=== PATIENT | male | born 1965 | race Caucasian/White ===

== ENCOUNTER 2016-08-05 09:45 | Day surgery (SDC) | payer OTHER ==
[~2016-08-05] VITALS: Ht 188 cm; Wt 127.0 kg
[~2016-08-05 09:45] MED LIST: 0.9% Sodium Chloride 1,000 ML IV SCH; LOSA50TA37 PO; METF-496 PO; OMEP1PAC5 PO; Sodium Chloride LOK Flush 10 mL Syringe IV PRN; fentaNYL-PF 50 mCg/mL 2 mL Inj IVPUSH PRN
[2016-08-05 10:58] VITALS: BP 148/74; PULSE 55; RESP 16; O2SAT 95
--- NOTE | 2016-08-05 11:37 | PCM.ENDEGD ---
EGD Date of Service: Aug 05, 2016 Physician Emanuel Lynch MD Indication for Procedure Dysphagia and reflux Post Procedure Dx & Findings: Esophagitis and gastritis Procedure Esophagogastroduodenoscopy PROCEDURE IN DETAIL: The patient was placed in left lateral decubitus position. Bite block was placed. Scope lubricated, placed in posterior pharynx, passed through the cricopharyngeus and esophagus, slowly advanced the entire length of the gastric pouch, pylorus was identified, scope passed through the pylorus and descending portion of duodenum, withdrawn in the antrum, retroflexed upon itself for view of fundus and cardia. Scope was then withdrawn through the oropharynx. Esophagus was unremarkable until the Z line. Z line was irregular and mild scarring noted. Biopsies are obtained using cold forceps. Stomach showed irritation from fundus body antrum and to some extent pylorus. There were some redness and mild edema. Biopsy obtained in these areas. Retroflexion showed cardia and fundus. Stomach was easily inflatable and deflated when using air. Duodenum showed normal villous structures normal folds. Impression Esophagitis with minimal scarring status post biopsies Gastritis Recommendation Continue Prilosec. Presedation Assessment Risks and Benefits Informed consent was obtained from the patient after all risks and benefits including but not limited to drug reaction, infection, pain, bleeding, perforation, as well as alternatives were discussed. Patient monitoring Continuous pulse oximetry, cardiac monitoring, blood pressure monitoring, IV access, and oxygen at 2L per nasal cannula. Periprocedural Fentanyl: Fentanyl 100mcg Incrementally Midazolam: Midazolam 5mg Incrementally Complications There were no periprocedural complications identified. Post Procedure Plan Post Procedure Recommendations 1. Restrict activities today. 2. Resume normal activities in the morning. 3. Resume medications. 4. GERD behavioral modification: - Avoid fatty, acidic, spicy, large meals - Do not lie down after meals - Do not eat or drink anything for at least 2 1/2 hours before going to bed at night - Discontinue tobacco and alcohol - Decrease or avoid caffeine - Avoid chocolate and mints - Decrease weight - Avoid aspirin and non steroidal anti-inflammatory agents (NSAID) such as Aleve, Advil, Mobic, Naproxen, Ibuprofen, etc 5. Add proton pump inhibitor. Take 30 minutes before 1st meal of the day. 6. Patient informed of normal post procedure side effects as bloating, drowsiness, blood streaking in the stool 7. If gastric biopsy reveal H.pylori, continue with appropriate treatment 8. If small bowel biopsy reveals celiac, continue with appropriate treatment 9. Please don't hesitate to call me with any questions Emanuel Lynch MD Aug 05, 2016 11:37
--- NOTE | 2016-08-05 12:08 | PCM.ENDCOL ---
Colonoscopy Date of Service: Aug 05, 2016 Physician Emanuel Lynch MD Indication for Procedure Screening Post Procedure Dx & Findings: Polyp hemorrhoids Procedure Colonoscopy Prep adequate cecal time 3 minutes withdrawal time 12 minutes PROCEDURE IN DETAIL: After unremarkable rectal examination Olympus video colonoscope was inserted patient's anal canal was advanced to cecum. Landmarks were identified including the ileocecal valve and appendiceal orifice. Scope was withdrawn systematically. The mucosa of the cecum, ascending, transverse, descending, sigmoid, rectal mucosa lined with whitish, pink, smooth, glistening, normal-appearing mucosa, normal fine branching, underlying vascularity, normal haustra. The patient tolerated procedure and was transported to observation area. In the ascending colon, there was a 1 mm polyp which was resected completely using cold forceps. In the ascending colon, there was a 1 mm polyp which was again resected completely using cold forceps. In the transverse colon, there was a 3 mm polyps which was resected completely using cold snare. Also in the transverse colon, there was a 1 mm polyp which was resected completely using cold forceps. In the descending colon, it were 2 polyps 1 mm in size which were resected completely using cold forceps. In the rectosigmoid junction, there were two1 mm polyps which were resected completely using cold forceps. In the rectum, retroflexion was done which showed hemorrhoids and anal canal was inspected carefully on the way out and hemorrhoids noted. Impression Polyps 7 status post complete removal Hemorrhoids Recommendation Repeat colonoscopy 3 years Presedation Assessment Risks and Benefits Informed consent was obtained from the patient after all risks and benefits including but not limited to drug reaction, infection, pain, bleeding, perforation, as well as alternatives were discussed. Patient monitoring Continuous pulse oximetry, cardiac monitoring, blood pressure monitoring, IV access, and oxygen at 2L per nasal cannula. Periprocedural Fentanyl: Fentanyl 50mcg Incrementally Midazolam: Midazolam 1mg Incrementally Complications There were no periprocedural complications identified. Post Procedure Plan Post Procedure Recommendations 1. Restrict activities today. 2. Resume normal activities in the morning. 3. Resume medications. 4. Patient informed of normal post procedure side effects as bloating, drowsiness, blood streaking in the stool. 5. average risk CRCS. If colon polyps come back as: -Hyperplastic- can repeat colonoscopy in 10 years -Tubular adenoma- repeat colonoscopy in 5 years -Tubulovillous/villous adenoma- repeat colonoscopy in 3 years -If any dysplasia- return to clinic as soon as possible 6. Please don't hesitate to call me with any questions. Emanuel Lynch MD Aug 05, 2016 12:08
[2016-08-05 12:09] VITALS: BP 153/83; PULSE 68; RESP 12; O2SAT 94
[2016-08-05 12:19] VITALS: BP 139/83; PULSE 58; RESP 12; O2SAT 95
[2016-08-05 12:29] VITALS: BP 134/81; PULSE 57; RESP 14; O2SAT 95
[2016-08-05 12:39] VITALS: BP 142/76; PULSE 57; RESP 14; O2SAT 95
--- NOTE | 2016-08-06 11:59 | PATH ---
SURGICAL PATHOLOGY Attending Physician:Emanuel Lynch M.D. CASE STATUS: Signed Out PATIENT NAME: KAREEN SCHNEIDER PID: [id number] : 1965 DATE COLLECTED:08/05/2016 20:40 SPECIMEN: 1: Gastric, Biopsy 2: Esophagus, Biopsy 3: Colon, Biopsy 4: Colon, Biopsy 5: Colon, Biopsy 6: Colon, Biopsy CLINICAL HISTORY: 1). GASTRIC BIOPSY 2). DISTAL ESOPHAGUS BIOPSY 3). ASCENDING COLON POLYP 4). TRANSVERSE COLON POLYPS 5). DESCENDING COLON POLYPS 6). RECTO-SIGMOID POLYPS FINAL DIAGNOSIS: 1.GASTRIC BIOPSY: MUCOSAL HYPEREMIA WITHOUT ASSOCIATED SIGNIFICANT INFLAMMATION INVOLVING FUNDIC MUCOSA. Negative for evidence of Helicobacter. Negative for intestinal metaplasia. Negative for dysplasia and malignancy. 2.DISTAL ESOPHAGUS BIOPSY: FRAGMENTS OF SQUAMOUS MUCOSA AND GASTRIC CARDIA-TYPE MUCOSA NEGATIVE FOR SPECIALIZED METAPLASIA OF [place]' S-TYPE ESOPHAGUS. Negative for dysplasia and malignancy. Eosinophils are not increased. Small focus of pancreatic acinar metaplasia. 3.ASCENDING COLON POLYP: TUBULAR ADENOMA. 4.TRANSVERSE COLON POLYPS: TUBULAR ADENOMA INVOLVING MULTIPLE BIOPSY FRAGMENTS. 5.DESCENDING COLON POLYPS: TUBULAR ADENOMA INVOLVING BOTH BIOPSY FRAGMENTS. 6.RECTOSIGMOID POLYPS: TUBULAR ADENOMA. HYPERPLASTIC POLYP. ICD10 CODE D12.2 GROSS DESCRIPTION: The specimen is received in six formalin filled containers labeled with the patient's name. 1). The specimen is sublabeled "gastric" and consists of 2 portions of tissue which aggregate to 0.3 x 0.3 x 0.2 CM. The specimen is entirely submitted in cassette 1A. 2). The specimen is sublabeled "distal esophagus" and consists of a 0.3 x 0.2 x 0.2 CM portion of tissue which is entirely submitted in cassette 2A. 3). The specimen is sublabeled "ascending colon polyp" and consists of a 0.2 x 0.2 x 0.2 CM portion of tissue which is entirely submitted in cassette 3A. 4). The specimen is sublabeled "transverse colon polyps" and consists of multiple portions of tissue which aggregate to 0.5 x 0.5 x 0.2 CM. The specimen is entirely submitted in cassette 4A. 5). The specimen is sublabeled "descending colon polyp" and consists of 2 portions of tissue which aggregate to 0.4 x 0.4 x 0.3 CM. The specimen is entirely submitted in cassette 5A. 6). The specimen is sublabeled "recto sigmoid polyps" and consists of 2 portions of tissue which aggregate to 0.4 x 0.4 x 0.3 CM. The specimen is entirely submitted in cassette 6A. 08/05/2016 DAC MICRO DESCRIPTION: See diagnosis. ICD-9 CODES: CPT CODES: 1: 81560 2: 36367 3: 82150 4: 62707 5: 92104 6: 48457 Electronically Signed Out Richard Estrella MD [facility] [address], [place] [address] Technical component performed at [facility], [address], [place], [address]
== END 2016-08-05 23:59 | disposition home or self-care (01) ==
LOC: END 09:45
PROVIDERS: ATTEND Internal Medicine
DX: Z12.11 Encounter for screening for malignant neoplasm of colon (principal); D12.2 Benign neoplasm of ascending colon; D12.4 Benign neoplasm of descending colon; D12.3 Benign neoplasm of transverse colon; D12.7 Benign neoplasm of rectosigmoid junction; K62.1 Rectal polyp; K64.9 Unspecified hemorrhoids; K20.9 Esophagitis, unspecified; K29.70 Gastritis, unspecified, without bleeding; E11.42 Type 2 diabetes mellitus with diabetic polyneuropathy; Z79.84 Long term (current) use of oral hypoglycemic drugs; E66.9 Obesity, unspecified; Z68.30 Body mass index [BMI] 30.0-30.9, adult
CPT/HCPCS: 43239; 45380; 99153; G0500; J2250; J7030

== ENCOUNTER 2016-09-18 15:58 | Emergency (ER) | payer OTHER ==
[~2016-09-18] VITALS: Ht 188 cm; Wt 136.4 kg
[~2016-09-18 15:58] MED LIST changes: -0.9% Sodium Chloride 1,000 ML IV SCH; -Sodium Chloride LOK Flush 10 mL Syringe IV PRN; -fentaNYL-PF 50 mCg/mL 2 mL Inj IVPUSH PRN
[2016-09-18 16:02] VITALS: BP 194/111; PULSE 61; RESP 24; O2SAT 99
[2016-09-18] MEDS ORDERED: Nitroglycerin 2% 1 Gm Ointment TOPICAL ONE (16:20)
[2016-09-18] MEDS ORDERED: Heparin 5,000 Unit/mL Inj IVPUSH ONE (16:20)
[2016-09-18] MEDS ORDERED: Heparin 25K Unit/500mL 0.45 NS 25,000 UNIT in IV Premix 1 EACH IV ONE (16:20)
[2016-09-18] MEDS ORDERED: Ondansetron 2 mg/mL 2 mL Inj IVPUSH ONE (16:20)
--- NOTE | 2016-09-18 16:22 | ED.REPORT ---
HPI-Chest Pain 40 and Over Date of Service Sep 18, 2016 ED Provider: Tarun Prakash DO Pt is a 50 y/o male w/ a hx of HTN, NIDDM, presenting to the ED c/o severe substernal CP with radiation to the posterior right arm onset 2 hours ago. Pt c/ o associated SOB, profuse diaphoresis. Pt denies any history of previous CT. His diabetes is not well controlled. Pt denies smoking. He has a family history of CAD in his mother. Nursing Notes Stated Complaint: CHEST PAIN, PROBLEMS BREATHING Chief Complaint: Chest Pain Nursing Notes Reviewed: Yes Allergies: Coded Allergies: codeine (Verified Allergy, Intermediate, HALLUCINATION, BEHAVIOR CHANGES, 08/05/16) Scheduled Losartan Potassium (Losartan Potassium) 50 Mg Tablet 50 MG PO DAILY Metformin ER (Metformin ER) 1,000 Mg Tablet 1,000 MG PO DAILY Omeprazole/Sodium Bicarbonate (Omeprazole-Bicarb 20-1,680 Pkt) 20 Mg-1,680 Mg Packet 1 EACH PO BID General Time Seen by MD: 16:09 Chief Complaint Chest pain Hx Obtained From: Patient Arrived By: Walk-in Sudden in Onset?: Yes Onset Occurred: 1 - 4 hours ago Symptom Duration: Since onset Location: : Substernal Quality: Painful Radiation: : Arm right Migration/Movement: Reports: None Severity: Current: Moderate Severity: Maximum: Severe Similar Sx Previous: No Past Medical History Past Medical History Hypertension DM Hx pneumonia GERD Arthritis Past Surgical History Appendectomy R ankle Family History CAD in mother Smoking History Former Smoker Social History Alcohol Use: "Social" Drug Use: Denies drug use Ambulatory Status Independent Review of Systems Constitutional: Denies: Chills, Fever Respiratory: Reports: Shortness of breath, Denies: Non-productive cough Cardiovascular: Reports: Chest pain, Denies: Edema, Palpitations, Syncope GI: Denies: Abdominal pain, Diarrhea, Vomiting Skin: Reports Diaphoresis, Denies Rash Neurologic: Denies: Focal weakness, Numbness Complete sys rev & neg: except as marked. Physical Exam Initial Vital Signs Vital Signs (First) Date Time Temp Pulse Resp B/P Pulse Ox O2 Delivery O2 Flow Rate FiO2 09/18/16 16:02 36.7 61 24 194/111 99 Room Air Initial VS: Reviewed, Vital signs abnormal (severe hypertension) Head / Eyes: Atraumatic, Normocephalic, PERRL ENT: Mucous membranes moist, Conjunctiva normal, No scleral icterus Neck: Supple, Full range of motion Extremities: Vascular intact, Neuro intact, No swelling, No tenderness Neurologic: Alert, Oriented, Nonfocal Psychiatric: Mood/affect normal, Behavior normal, Normal thought content General/Constitutional: Awake, Alert, Cooperative Distress / Hydration: Positive: Distress moderate Respiratory / Chest: Atraumatic, Breath sounds NL, Breath sounds = bilat, No respiratory distress, No rales, No rhonchi, No wheezing, No retractions, No stridor, No chest tenderness, No chest wall deformity, No crepitus Cardiovascular: Heart rate NL, Regular rhythm, Heart sounds NL, No gallop, No murmurs, No rubs, Cap refill not delayed, Peripheral circulation NL Abdomen: Atraumatic, Soft, Non-tender Skin: Atraumatic, No rash, Warm Color / Condition: Positive: Diaphoresis present Interpretation & Diagnostics Lab Results Interpretation Test 09/18/16 16:28 ECG Interpretation ECG Interpretation: SInus rhythm rate 65 Acute inferior infarct and anteroseptal infarct ST elevation in inferior leads ST depression in anterior leads V2-V6, AvL, and I No prior available for comparison Time: 16:22 Interpreted by: ED physician X-Ray Chest Interpretation Chest Xray Interpretation: IMPRESSION: No acute process. Dictated by: Ricco Macias M.D. on 09/18/2016 at 16:25 Approved by: Ricco Macias M.D. on 09/18/2016 at 16:26 View: Portable, 1 view Interpretation / Wet Read by: Interpret - Radiologist Re-Eval/Medical Decision Med Decision/Clinical Course 50-year-old male with a history of uncontrolled diabetes and hypertension presents with substernal chest pain that started at rest 2 hours prior to arrival. The pain radiates to his right posterior arm. EKG shows acute inferior ST elevation CT. I spoke with our locomotive engineer , who at this time notes there is a patient on the Surgical Instrument Repair Specialist table and we are unable to emergently/urgently take him for angioplasty. at [facility] was contacted and has accepted the patient. He will be transferred emergently for treatment. Here patient was given morphine, oxygen, 1 inch of Nitropaste, a full aspirin, and heparin bolus followed by drip. Pain decreased after morphine but has not completely abated. He will be given more in the ambulance. Patient left our ER at 1650. His total time since I saw him in the ER when notified by check of abnormal EKG was 30 minutes. Patient required my full and undivided attention for the entire ER stay. Time of Eval: 16:32 Re-Evaluation/Progress Note: Pt rechecked. Informed pt of need for transfer due to not available geophysical laboratory supervisor bed. He agrees with plan for transfer. Consultation : Referral / Consult Name: Darryn Rendon MD Consulted With: Cardiology Call Returned at: 16:25 Machine Tool Operator: Agrees with eval, Agrees with plan Note: Consulted with STEMI doc. There is a patient on the geophysical laboratory supervisor table at the moment. 16:28 - Dr. Finley called back and requested STAT transfer to another hospital because the cath table is busy. Recommends 600 mg Plavix orally. Counseled Regarding: Diagnosis, Lab results, Need for transfer Discharge & Departure Primary Impression: ST elevation myocardial infarction (STEMI) of inferior wall Disposition: Transfer, Acute Care Facility Transfer Requested at: 16:29 Call returned time (1638) Receiving Hospital: [facility] - Claims Technician Dr. Lackey ED doc: Dr. Dent Transfer Accepted: Yes Transfer Accepted at: 16:29 Transfer Reason: Higher level of care Spoke with: Specialty physician (Claims Technician) Patient Status: Stable Patient Informed: Yes Discharge Condition All VS Reviewed: Yes Condition: Stable Referrals: Omero Davis MD (PCP) Crit Care Except Billable Proc Time Spent: 30-74 minutes Services Performed: Patient management by me, Time spent at bedside, Reviewing test results, Reviewing imaging, Discussing patient care, Documentation in record Scribe Attestation Portions of this note were transcribed by Tanner Lowe. I, Dr. Prakash, personally performed the history, physical exam and medical decision-making; I reviewed and confirmed the accuracy of the information in the transcribed note. Signed by Viviana Humphrey, 09/18/16 - 1630 copies to: Omero Davis MD, Gary R DO Sep 18, 2016 16:22 TANNER LOWE Sep 18, 2016 16:23
--- NOTE | 2016-09-18 16:31 | DRSVH ---
PROCEDURE: X-RAY CHEST ONE VIEW, PORTABLE ([id number]) INDICATIONS: cp TECHNIQUE: One view of the chest was acquired. COMPARISON: None. FINDINGS: Surgical changes and devices: None. Lungs and pleura: No pleural effusions or pneumothorax. Lungs are clear. Mediastinum: Mediastinal contours appear normal. Heart size is normal. Bones and chest wall: No suspicious bony lesions. Overlying soft tissues appear unremarkable. IMPRESSION: No acute process. Dictated by: Ricco Macias M.D. on 09/18/2016 at 16:25 Approved by: Ricco Macias M.D. on 09/18/2016 at 16:26
[2016-09-18 16:44] LABS: BASOPHILS % (AUTO) 0.3 % (0-3); EOSINOPHILS % (AUTO) 0.8 % (0-5); MONOCYTES % (AUTO) 5.5 % (4-12); Mean Corpuscular Hemoglobin 28.4 pg (27.0-35.0); NEUTROPHILS % (AUTO) 59.5 % (40-74); Platelet Count 222 bil/L (150-400)
[2016-09-18 16:45] VITALS: BP 172/88; PULSE 71; RESP 16; O2SAT 99
[2016-09-18 17:26] LABS: TROPONIN T < 0.010 ug/L (0.0-0.011)
== END 2016-09-18 16:50 | disposition short-term general hospital (02) ==
LOC: SED 15:58
DX: I21.19 ST elevation (STEMI) myocardial infarction involving other coronary artery of inferior wall (principal); R61 Generalized hyperhidrosis; I10 Essential (primary) hypertension; E11.9 Type 2 diabetes mellitus without complications; K21.9 Gastro-esophageal reflux disease without esophagitis; Z88.5 Allergy status to narcotic agent; Z87.01 Personal history of pneumonia (recurrent); Z87.891 Personal history of nicotine dependence; Z79.84 Long term (current) use of oral hypoglycemic drugs
CPT/HCPCS: 36415; 71010; 80053; 83735; 84484; 85025; 93005; 96374; 96375; 99291; J1644; J2270; J2405

== ENCOUNTER 2016-10-14 19:26 | Observation (INO) | payer OTHER ==
[~2016-10-14] VITALS: Ht 188 cm; Wt 129.4 kg
[2016-10-14 19:33] VITALS: BP 158/76; PULSE 57; RESP 24; O2SAT 98
[2016-10-14 20:08] LABS: BASOPHILS % (AUTO) 0.4 % (0-3); EOSINOPHILS % (AUTO) 1.1 % (0-5); MONOCYTES % (AUTO) 9.6 % (4-12); Mean Corpuscular Hemoglobin 28.1 pg (27.0-35.0); Mean Corpuscular Volume 82.1 fL (81-100); NEUTROPHILS % (AUTO) 45.9 % (40-74); Platelet Count 191 bil/L (150-400)
--- NOTE | 2016-10-14 20:16 | DRSVH ---
PROCEDURE: X-RAY CHEST ONE VIEW, PORTABLE ([id number]) INDICATIONS: CHEST PAIN TECHNIQUE: One view of the chest was acquired. COMPARISON: [facility], CR, XR CHEST 1VW (PORTABLE), 09/18/2016, 16:05. FINDINGS: Surgical changes and devices: None. Lungs and pleura: No pleural effusions or pneumothorax. Lungs are clear. Mediastinum: Mediastinal contours appear normal. Heart size is normal. Bones and chest wall: No suspicious bony lesions. Overlying soft tissues appear unremarkable. IMPRESSION: No acute process. Dictated by: Ricco Macias M.D. on 10/14/2016 at 20:14 Approved by: Ricco Macias M.D. on 10/14/2016 at 20:14
--- NOTE | 2016-10-14 20:16 | ED.REPORT ---
HPI-Chest Pain 40 and Over Date of Service Oct 14, 2016 ED Provider: Richard Marrero MD A 50 year old male with a history of hypertension, poorly controlled type II diabetes, and STEMI s/p cardiac angiogram presents to the ED complaining of intermittent chest pain that began 0900 this morning. Patient was recently seen in the ED on 09/18 for substernal chest pain and was transferred to [facility] for an angioplasty after EKG showed acute inferior STEMI. Records from [facility] are reviewed. On 09/18 patient had emergent angiogram total occlusion of RCA and a 3mm x 28 mm stent was placed. Evidence of residual stenosis was found. Patient will be reevaluated for a PCI in the next 4-6 weeks after evidence of OM1 lesion was found. Echocardiogram revealed EF 50% with inferior hypokinesis. Today, the patient presents with stuttering chest pain that he rates as a 6/10. The intermittent episodes of pain last approx. 10 minutes and is exacerbated by movement. The pain is not relieved by anything. His pain radiates to his left arm and has become increasingly worse since onset. Associated symptoms include lightheadedness, one episode of diaphoresis and bilateral arm discomfort. Patient has an appointment scheduled to for further intervention on 11/03. He took aspirin this morning with little relief. His current medication list includes metoprolol, lisinopril, metformin, Plavix and carvedilol. He denies any current SOB or bloody stool. He denies taking Nitroglycerin or history of hyperlipidemia. Patient recently quit smoking after his OK. Nursing Notes Stated Complaint: CHEST PAIN Chief Complaint: Chest Pain Nursing Notes Reviewed: Yes Allergies: Coded Allergies: codeine (Verified Adverse Reaction, Intermediate, HALLUCINATION, BEHAVIOR CHANGES, 10/14/16) Scheduled Aspirin (Aspirin) 81 Mg Tablet 81 MG PO QAM Atorvastatin (Lipitor) 80 Mg Tablet 80 MG PO HS Carvedilol (Carvedilol) 6.25 Mg Tablet 6.25 MG PO BID Clopidogrel (Clopidogrel) 75 Mg Tablet 75 MG PO HS Glimepiride (Glimepiride) 2 Mg Tablet 2 MG PO DAILYWM Losartan Potassium (Losartan Potassium) 50 Mg Tablet 100 MG PO HS Metformin ER (Metformin ER) 1,000 Mg Tablet 1,000 MG PO HS Omeprazole (Omeprazole) 20 Mg Tablet.dr 20 MG PO HS Scheduled PRN Acetaminophen (Acetaminophen) 325 Mg Tablet 650 MG PO Q4H PRN PRN For Pain Hydrocodone-Acetaminophen 5-325 mg (Hydrocodone-Acetaminophen 5-325 mg) 1 Each Tablet 1 TABLET PO Q6H PRN PRN For Pain Nitroglycerin SL (Nitroglycerin SL) 0.4 Mg Tab.subl 0.4 MG SL Q5MIN PRN PRN For Chest Pain General Time Seen by MD: 19:58 Chief Complaint Chest pain Hx Obtained From: Patient Arrived By: Walk-in Sudden in Onset?: Yes Onset Occurred: 9 - 12 hours ago Symptom Duration: Intermittent (10 min episodes) Location: : Chest left: Chest right Quality: Painful Radiation: : Arm left Migration/Movement: Reports: None Severity: Current: Pain level 6 out of 10 Severity: Maximum: Pain level 6 out of 10 Associated with: Reports: Diaphoresis, Lightheaded, Denies: Shortness of Breath Pertinent Negative: Pt denies other symptoms Exacerbated by: Movement Pertinent Negative: Relieved by nothing Recent Healthcare: Recent doctor visit, Recent hospitalization Risk Factors )( CAD Risk Stratification Diabetes mellitus Hypertension Risk factors reviewed )( TAD Risk Stratification Hypertension Risk factors reviewed )( PE Risk Stratification Risk factors reviewed Past Medical History Past Medical History Notes: PCP: Dr. Omero Davis Cardiology: Dr. Efren [facility] Past Medical History Hypertension DM Hx pneumonia GERD Arthritis Denies: Hyperlipidemia Past Surgical History Appendectomy R ankle Stent Family History CAD in mother s/p stent (50+) Smoking History Former Smoker Social History Alcohol Use: "Social" Drug Use: Denies drug use Other Social History: Good social support, Local resident Ambulatory Status Independent Review of Systems Constitutional: Denies: Chills, Fever Respiratory: Denies: Shortness of breath Cardiovascular: Reports: Chest pain GI: Denies: Bloody/tarry stool, Melena Musculoskeletal: Reports: Extremity pain (Bilateral arm discomfort) Skin: Reports Diaphoresis Neurologic: Reports: Lightheaded, Denies: Change LOC Complete sys rev & neg: except as marked. Physical Exam Initial Vital Signs Vital Signs (First) Date Time Temp Pulse Resp B/P Pulse Ox O2 Delivery O2 Flow Rate FiO2 10/14/16 19:33 36.4 57 24 158/76 98 Room Air Initial VS: Reviewed Head / Eyes: Atraumatic, Normocephalic, PERRL Extremities: Vascular intact, Neuro intact, No swelling, No tenderness Skin: Warm, Dry, No cyanosis Neurologic: Alert, Oriented, Nonfocal Psychiatric: Mood/affect normal, Behavior normal, Normal thought content General/Constitutional: Awake, Alert, No acute distress Respiratory / Chest: Atraumatic, Breath sounds NL, Breath sounds = bilat, No respiratory distress Cardiovascular: Heart rate NL, Regular rhythm, Heart sounds NL, No gallop, No murmurs, No rubs Abdomen: Atraumatic, Soft, BS normoactive Skin: Atraumatic, Color NL, Warm Color / Condition: Positive: Diaphoresis present Interpretation & Diagnostics Lab Results Interpretation Result Diagram: 10/14/16200410/14/162004 Test 10/14/16 20:05 10/14/16 20:06 White Blood Count 8.1th/mm3 (3.8-10.1) Red Blood Count 4.63mil/mm3 (4.40-5.80) Hemoglobin 13.0g/dL (13.8-17.2) Hematocrit 38.0% (41.0-50.0) Mean Corpuscular Volume 82.1fL (81-100) Mean Corpuscular Hemoglobin 28.1pg (27.0-35.0) Mean Corpuscular Hemoglobin Concent 34.2% (32.0-37.0) Red Cell Distribution Width 13.2% (12.3-15.4) Platelet Count 191bil/L (150-400) Neutrophils (%) (Auto) 45.9% (40-74) Lymphocytes (%) (Auto) 42.9% (14-46) Monocytes (%) (Auto) 9.6% (4-12) Eosinophils (%) (Auto) 1.1% (0-5) Basophils (%) (Auto) 0.4% (0-3) Activated Partial Thromboplast Time 27.7sec (22.8-33.0) Sodium Level 140mEq/L (134-144) Potassium Level 4.1mEq/L (3.5-5.2) Chloride Level 103mEq/L (97-108) Carbon Dioxide Level 25mmol/L (18-29) Blood Urea Nitrogen 11mg/dL (6-24) Creatinine 1.07mg/dL (0.76-1.27) Estimat Glomerular Filtration Rate 78mL/min (>59) Glucose Level 88mg/dL (60-99) Calcium Level 9.3mg/dL (8.5-10.1) Magnesium Level 2.0mg/dL (1.6-2.6) Total Bilirubin 0.6mg/dL (0.0-1.2) Aspartate Amino Transf (AST/SGOT) 23U/L (0-50) Alanine Aminotransferase (ALT/SGPT) 40U/L (0-44) Alkaline Phosphatase 76U/L (25-150) Troponin T < 0.010ug/L (0.0-0.011) Total Protein 7.1g/dL (6.4-8.4) Albumin 4.0g/dL (3.4-5.0) Hold Plaza Top Tube Received (Received) Prothrombin Time 10.3sec (8.1-12.5) Prothromb Time International Ratio 0.96ratio ECG Interpretation ECG Interpretation: Sinus rhythm Rate 54 Inferior and anterior infarct No acute ST segment changes Improved (3/7 STEMI) Time: 20:31 Interpreted by: ED physician ECG Interpretation: Sinus rhythm Rate 62 Time: 20:35 Interpreted by: ED physician Normal ECG Interpretation: No change from prior ECGs Repeat ECG: Repeat ECG unchanged X-Ray Chest Interpretation Chest Xray Interpretation: IMPRESSION: No acute process. Dictated by: Ricco Macias M.D. on 10/14/2016 at 20:14 Interpretation / Wet Read by: Interpret - Radiologist Re-Eval/Medical Decision Med Decision/Clinical Course 50-year-old male with known coronary disease presenting with chest pain however no EKG changes and no elevation of troponin in spite of many hours of stuttering pain. No significant response to oral nitrates, topical nitrates applied and given morphine. He is notably bradycardic however he is on a beta erma. The patient is started on heparin given full dose aspirin and admitted to the hospitalist service. Cardiology will consult in the morning. Consultation #1: Referral / Consult Name: Syd Serrano MD Consulted With: Cardiology Call Returned at: 20:51 Field Recorder: Will see patient, Agrees with eval, Agrees with plan Note: Recommends heparin and NPO Consultation #2: Referral / Consult Name: Wanda Palacio DO Consulted With: Hospitalist Call Returned at: 20:57 Field Recorder: Will see patient, Agrees with eval, Agrees with plan, Accepts admit Counseled Regarding: Diagnosis, Lab results, Need for admission Discharge & Departure Primary Impression: Acute coronary syndrome Disposition: ADMITTED TO HOSPITAL Discharge Condition All VS Reviewed: Yes Condition: Stable Referrals: Omero Davis MD (PCP) Scribe Attestation Portions of this note were transcribed by Katarina Chris. I, Dr. Marrero personally performed the history, physical exam and medical decision-making; I reviewed and confirmed the accuracy of the information in the transcribed note. Signed by: Viviana Laureano, 10/14/16 2200. copies to: Omero Davis MD, Donald L MD Oct 14, 2016 20:16 KATARINA CHRIS Oct 14, 2016 20:24
[2016-10-14 20:34] LABS: TROPONIN T < 0.010 ug/L (0.0-0.011)
[2016-10-14] MEDS ORDERED: Heparin 5,000 Unit/mL Inj IVPUSH ONE (20:35)
[2016-10-14] MEDS ORDERED: Heparin 25K Unit/500mL 0.45 NS 25,000 UNIT in IV Premix 1 EACH IV SCH (20:35)
[2016-10-14] MEDS ORDERED: Nitroglycerin 2% 1 Gm Ointment TOPICAL SCH (21:15)
[2016-10-14] MEDS ORDERED: GLIM2TAB2 PO (21:44)
[2016-10-14] MEDS ORDERED: CARV6.252 PO (21:44)
[2016-10-14] MEDS ORDERED: ACET325T51 PO (21:44)
[2016-10-14] MEDS ORDERED: NITR0.4T6 SL (21:44)
[2016-10-14] MEDS ORDERED: HYDR-4003 PO (21:44)
[2016-10-14] MEDS ORDERED: ASPI-973 PO (21:44)
[2016-10-14] MEDS ORDERED: CLOP75TA28 PO (21:44)
[2016-10-14] MEDS ORDERED: OMEP20TA86 PO (21:44)
[2016-10-14] MEDS ORDERED: ATOR80TA PO (21:44)
[2016-10-14 22:21] VITALS: BP 142/87; PULSE 51; RESP 16; O2SAT 97
[2016-10-14] MEDS ORDERED: 0.9% Sodium Chloride 1,000 ML IV SCH (22:46)
[2016-10-14] MEDS ORDERED: Atropine 1 mg/10 mL (Code) Syringe IVPUSH PRN (22:50)
[2016-10-14] MEDS ORDERED: Ondansetron 2 mg/mL 2 mL Inj IVPUSH PRN (22:50)
[2016-10-14] MEDS ORDERED: Alum-Mag Hydrox-Simeth 30 mL Suspension PO PRN (22:50)
[2016-10-14] MEDS ORDERED: Polyethylene Glycol (PEG) 17 Gm Powder PO PRN (22:50)
[2016-10-14] MEDS ORDERED: Senna-Docusate 8.6-50 mg Tablet PO PRN (22:50)
[2016-10-14 22:51] VITALS: BP 136/74; PULSE 50; RESP 14; O2SAT 97
[2016-10-14] MEDS ORDERED: Glucose 40% Oral Gel 15 Gm Tube PO PRN (22:55)
--- NOTE | 2016-10-14 23:13 | PCM.HPMED ---
Subjective Date of Service Oct 14, 2016 Primary Provider: Admitting Physician: Wanda Palacio DO Primary Care Physician: Omero Davis MD Attending Physician: Wanda Palacio DO Chief Complaint: Chest pain History of Present Illness: Patient is a 50 y.o. M with a history of hypertension, poorly controlled type II diabetes, recently seen in the ED on 09/18 for substernal chest pain and was transferred to [facility] for an angioplasty after EKG showed acute inferior STEMI, s/p cardiac angiogram two vessel disease marginal vessel and RCA ( one stent to RCA patient scheduled November 03 to have marginal vessel stented in [facility]). Records from [facility] on 09/18 patient show that patient had "emergent angiogram total occlusion of RCA and a 3mm x 28 mm stent was placed. Evidence of residual stenosis was found. Patient will be reevaluated for a PCI in the next 4-6 weeks after evidence of OM1 lesion was found. Echocardiogram revealed EF 50% with inferior hypokinesis." He presented to the ED complaining of intermittent chest pain that began 0900 this morning rated as a 6/10, described as constant lasting for about 10 minutes, made worse with movement and deep breaths, sharp, located to left chest at ribs 6 and 7, radiating to left axilla, associated with worsening shortness of breath, one episode of diaphoresis, fatigue, dizziness with standing. Patient noted that he has been taking double the dosage of Cardizem total 25 mg daily rather than 12.5 due to miscommunication of dosage. Patient noted that symptoms peak in the afternoon and he sough emergency care.Patient stated that chest pain on his left side has been present since his last catheterization but that it was at its worst today. Pain was similar to his last SC, however, arm pain was located on his right arm instead of left. Patient denies fever, chills, nausea, vomiting , abdominal pain, diarrhea, constipation, dysuria, swelling of hands and feet, syncope, change in vision, numbness or tingling. In the ED patient noted to be bradycardic, initial troponin was negative, diaphoretic, EKGs showed no signs of acute ST elevations, shortness of breath resolved on its own prior to ED visit, Chest pain improved minimally with nitroglycerin and relieved completely with morphine. Patient given aspirin, nitroglycerin, morphine, with improvement in chest pain, and started on heparin drip. Cardiology consulted from ED. Review of Systems: A comprehensive review of systems was conducted with the patient and found to be negative except as above in the History of Present Illness. Allergies Coded Allergies: codeine (Verified Adverse Reaction, Intermediate, HALLUCINATION, BEHAVIOR CHANGES, 10/14/16) Home Medications Aspirin (Aspirin) 81 Mg Tablet 81 MG PO QAM Atorvastatin (Lipitor) 80 Mg Tablet 80 MG PO HS Carvedilol (Carvedilol) 6.25 Mg Tablet 6.25 MG PO BID Clopidogrel (Clopidogrel) 75 Mg Tablet 75 MG PO HS Glimepiride (Glimepiride) 2 Mg Tablet 2 MG PO DAILYWM Losartan Potassium (Losartan Potassium) 50 Mg Tablet 100 MG PO HS Metformin ER (Metformin ER) 1,000 Mg Tablet 1,000 MG PO HS Omeprazole (Omeprazole) 20 Mg Tablet.dr 20 MG PO HS Acetaminophen (Acetaminophen) 325 Mg Tablet 650 MG PO Q4H PRN PRN For Pain Hydrocodone-Acetaminophen 5-325 mg (Hydrocodone-Acetaminophen 5-325 mg) 1 Each Tablet 1 TABLET PO Q6H PRN PRN For Pain Nitroglycerin SL (Nitroglycerin SL) 0.4 Mg Tab.subl 0.4 MG SL Q5MIN PRN PRN For Chest Pain PMH hypertension poorly controlled type II diabetes recently seen in the ED on 09/18 for substernal chest pain and was transferred to [facility] for an angioplasty after EKG showed acute inferior STEMI, s/p cardiac angiogram two vessel disease marginal vessel and RCA s/p Stent x 1 to RCA Hx pneumonia GERD Arthritis Surgical History s/p Stent x 1 to RCA Appendectomy R ankle surgery Family History Mother SC, DM No family history of cancer Social History Hx Alcohol Use: Yes (moderately ) Hx Substance Use: No Smoking Status: Former Smoker Exam Vital Signs Vital Sign - Last Date Time Temp Pulse Resp B/P Pulse Ox O2 Delivery O2 Flow Rate FiO2 10/14/16 22:51 36.9 50 14 136/74 97 Room Air Exam General: No acute distress, well-developed, well-nourished, appropriately interactive HEENT: Normocephalic, atraumatic. External ears without defect. Pupils equal, round, and reactive to light and accommodation. Anicteric sclerae, moist conjunctivae, and no lid lag. oral mucosa pink/moist mucosa. Neck: Supple with full range of motion. No jugular venous distension. No bruits. No lymphadenopathy or thyromegaly. Cardiovascular: Regular rate and rhythm with no murmurs, rubs, or gallops appreciated. Pulmonary: Clear to auscultation bilaterally with no crackles, wheezes, or rhonchi. Normal respiratory effort with no use of accessory muscles. Abdomen: Bowel tones present. Soft, nontender, nondistended. No hepatosplenomegaly or masses appreciated. Extremities: No clubbing, cyanosis, edema, or lymphadenopathy appreciated. Skin: Normal temperature, turgor, and texture; no rash, ulcers, or subcutaneous nodules appreciated. Neurological: Cranial nerves grossly intact. Normal muscle strength, tone, and bulk. Reflexes, coordination, and sensory function within normal limits. No known gait impairment. Psychiatric: Normal mood and affect. Alert and oriented to person, place, and time. Lymphatic: No lymphadenopathy noted on exam Lab and Diagnostics Result Diagram: 10/14/16200410/14/162004 X-Rays, CTs and MRIs Chest Xray IMPRESSION: No acute process. Dictated by: Ricco Macias M.D. on 10/14/2016 at 20:14 Interpretation / Wet Read by: Interpret - Radiologist 12-lead ECG ECG Interpretation: Sinus rhythm Rate 54 Inferior and anterior infarct No acute ST segment changes Improved (09/21 STEMI) Time: 20:31 Interpreted by: ED physician ECG Interpretation: Sinus rhythm Rate 62 Time: 20:35 Interpreted by: ED physician Normal ECG Interpretation: No change from prior ECGs Repeat ECG: Repeat ECG unchanged Reviewed, Agree with interpretation Assessment & Plan Patient is a 50 y.o. M with a history of hypertension, poorly controlled type II diabetes, recently seen in the ED on 09/18 for substernal chest pain and was transferred to [facility] for an angioplasty after EKG showed acute inferior STEMI, s/p cardiac angiogram two vessel disease marginal vessel and RCA ( one stent to RCA patient scheduled November 03 to have marginal vessel stented in [facility]). Patient admitted for treatment of unstable angina. 1. Unstable Angina, acute - In ED patient noted to be bradycardic, hypertensive, symptoms of chest pain with left arm radiation, diaphoresis, improvement with nitroglycerin and morphine - Initial troponin negative - RAMÍREZ score 4 - Continue heparin drip per protocol - Continue ASA 81 mg QD - Continue Atorvastatin 80 mg QD - Continue Clopidogrel 75 mg QD - beta erma held d/t bradycardia - recent increase in dose, as per patient and medication was inadvertently increased by RN above requested dose - PRN nitroglycerin for CP - PRN morphine for CP - PRN EKG for chest pain - Trend Troponin Q6 - Repeat CBC and BMP in AM, request records lipid panel and hgba1c - Cardiology consulted from ED, will see patient in AM - per patient request - am team to coordinate care [facility] - Per patient's wishes if he is stable enough to keep his planned cath at [facility] on November 03 he would prefer to have the procedure done there for continuity of care, if he needs to have the procedure sooner and is stable for transport he would prefer to be transferred, patient is aware and understands that if he is not stable for transport he will need to have the catheterization done at [facility]. Chronic conditions hypertension - Continue home medications, Cardizem continue at dose 12.5, discussed adverse effects of taking higher doses of CCBs - Monitor for hypotension poorly controlled type II diabetes - BG normal on admit - Low correctional scale ordered - Hold home medications GERD - Protonix Arthritis - Pain control hydrocodone 5-325 mg Q6 PRN CODE STATUS FULL CODE DVT: Clopidogrel, SCDs GI: protonix Patient is admitted under observation status with expected length of stay less than 2 midnights due to severity of presenting symptoms, risk of adverse event, Pain Evaluation: Adequate Pain Control VTE Prophylaxis: SCDs Resuscitation Status: CPR: Attempt Resuscitation Attending Statement The patient was seen and examined together with house staff on 10/14/2016 and I agree with the history, exam and plan as outlined in the note above. FANNIE LONG DO Oct 14, 2016 23:13 Wanda Palacio DO Oct 15, 2016 02:20
--- NOTE | 2016-10-14 23:23 | NUR ---
Admit Pt alert and oriented x3. Able to provide h&p. No c/o pain or discomfort. Arrived on the floor around 2200 with Heparin gtt Cardiac protocol infusing. Pt oriented to use of call light and room with understanding noted.
[2016-10-14] MEDS: Sodium Chloride LOK Flush 10 mL Syringe IVFLUSH SCH (23:36)
[2016-10-14 23:37] LABS: INR 0.96 ratio
[2016-10-15 00:29] VITALS: PULSE 48
[2016-10-15 02:44] VITALS: BP 121/66; PULSE 50; RESP 16; O2SAT 97
[2016-10-15 03:38] LABS: BASOPHILS % (AUTO) 0.4 % (0-3); MONOCYTES % (AUTO) 7.2 % (4-12); Mean Corpuscular Hemoglobin 28.2 pg (27.0-35.0); Mean Corpuscular Volume 82.3 fL (81-100); NEUTROPHILS % (AUTO) 41.1 % (40-74); Platelet Count 182 bil/L (150-400)
--- NOTE | 2016-10-15 03:46 | NUR ---
Telemetry Pt denies any chest pain/discomfort. Telemetry SB in 40s-50s. Heart rate dipped to 39 while asleep. Pt asymptomatic. No c/o dizziness when up and ambulating. Pt aware of NPO after midnight. Addendum: 10/15/16 at 0518 by GLENNA HAN RN Left Arm Pain Pt c/o left arm pain after getting up to void this am. He noticed that pain coming back on his left arm. He rates his pain 2/10. Morphine given with report of effectiveness. He denies any dizziness/sob during the episode. aware and assessed pt.
[2016-10-15 03:50] LABS: APPEARANCE,URINE CLEAR (CLEAR,HAZY); COLOR,URINE STRAW (YELLOW); OCCULT BLOOD,URINE NEGATIVE (NEGATIVE); UROBILINOGEN,URINE NORMAL (NORMAL)
[2016-10-15] MEDS: Heparin 5,000 Unit/mL Inj IVPUSH PRN ×2 (04:18→09:41)
[2016-10-15 04:51] VITALS: PULSE 43
[2016-10-15] MEDS ORDERED: Pantoprazole 4 mg/mL 10 mL Inj IVPUSH SCH (07:30)
[2016-10-15 07:57] VITALS: BP 123/69; PULSE 45; RESP 16; O2SAT 96
[2016-10-15 08:00] VITALS: PULSE 47
[2016-10-15] MEDS ORDERED: Insulin LISPRO 300 Unit/3 mL Inj SUBQ SCH (08:00)
[2016-10-15] MEDS: Sodium Chloride LOK Flush 10 mL Syringe IVFLUSH SCH (09:06)
--- NOTE | 2016-10-15 10:19 | NUR ---
Social Work: Screen D: Per EMR review, pt is a 50 year old male admitted for chest pain. Pt insurance is [employer] service plan. PCP is Omero Davis MD. NOK is [address], . Advanced directives not complete- information provided by PAINT FORMULATOR. Readmit score is not entered at this time. PAINT FORMULATOR met with pt at bedside. Sw role explained and contact info provided. Pt lives in [place] with his spouse. He is I with ADLs. 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 Pt is scheduled for heart cath on 11/03. Hospitalist team is contacting pt's banquet set up person to determine if pt requires transfer for emergent cath. A: Pt who is I at baseline. P: Anticipate pt to either transfer to [place] or discharge home with no further sw needs; PAINT FORMULATOR to continue to follow. DAVID Guadarrama
--- NOTE | 2016-10-15 11:17 | CONS ---
[address] [address] CONSULTATION REPORT PATIENT: KAREEN SCHNEIDER : 1965 MR#: [id number] ADMIT: 10/14/2016 JOB ID: [id number] DATE OF SERVICE: 10/15/2016 CARDIOLOGY CONSULTATION: CHIEF COMPLAINT: Chest pain. HISTORY OF PRESENT ILLNESS: The patient is a 50-year-old man with past medical history significant for hypertension and diabetes mellitus. He was treated on the of this month with an inferior ST-elevation MO down at [facility] where a 3 x 28 mm drug-eluting stent was placed to the vessel. At that time an obtuse marginal lesion was identified and plans were made for outpatient treatment of this approximately one month afterward. He has been doing well without chest pain, chest pressure. When he initially presented, he had some right-sided arm discomfort. With this current presentation, he came in with a day of feeling poorly followed by some discomfort in his left axillary area. It does seem that it might worsen with deep inspiration, not movement. Pain did not worsen with activity and not associated with shortness of breath, diaphoresis, nausea or vomiting. He denied presyncope or syncope. He has been having a few problems getting his medication doses correct at his last visit with his manager performance. They misunderstood the information about carvedilol and increased to 12.5 b.i.d. instead of 6.25 b.i.d. He has had very low heart rates. Coreg was ultimately discontinued and his losartan dose was increased. Today, he feels about the same. He still has some discomfort in the axillary area but no chest heaviness, no chest pressure, no chest tightness. PAST MEDICAL HISTORY/PROBLEM LIST: 1. History of diabetes. 2. Essential hypertension. 3. Hyperlipidemia. 4. History of coronary artery disease status post recent treatment for an MO September 18. 5. Also has history of GERD. HOME MEDICATIONS: Include: 1. Aspirin 81 mg a day. 2. Atorvastatin 80 mg q.h.s. 3. Carvedilol 6.25 mg b.i.d. (the family says it has now been discontinued). 4. Plavix 75 a day. 5. Glimepiride 10 mg daily. 6. Losartan 100 mg q.h.s. 7. Metformin 1000 mg q.h.s. 8. Omeprazole 20 mg daily. 9. Hydrocodone. 10. Acetaminophen. 11. Nitroglycerin p.r.n. ALLERGIES: To CODEINE. SOCIAL HISTORY: Former smoker. No significant alcohol use. FAMILY HISTORY: Mother with MO and diabetes. REVIEW OF SYSTEMS: Overall health: No fevers, night sweats, or weight loss. GI: No problems with ulcers, blood in his stool. : No dysuria, no hematuria. Pulmonary: No history of lung issues. Endocrine: Diabetes mellitus not optimally controlled. No heat or cold intolerance. Musculoskeletal: No joint pain or swelling. Heme: No easy bruising or bleeding. Derm: No rash or skin breakdown. Psych: No acute issues. ENT: No difficulty swallowing. No sore throat. Ophtho: No acute issues. Psych: No acute issues. All remaining 12 system review of systems is negative. PHYSICAL EXAMINATION: Blood pressure is 123/69, heart rates in the 40s-50s. He is afebrile. Sats are 96% on room air. General: In no acute distress. Speaking in full sentences without apparent shortness of breath. Head and neck examination: Normocephalic, atraumatic. Neck: No obvious JV distention. No carotid bruits appreciated. Heart examination: Regular rate and rhythm. I do not appreciate murmurs, gallops, rubs appreciated. Lungs sound clear to auscultation anteriorly. Back: No CVA tenderness to palpation. Abdomen: Soft, nontender. Extremities: Warm, 1+ DP pulses appreciated. Skin without breakdown appreciated. Neurologic: Gait is not tested. Psych: Appropriate mood and affect. ENT: Mucous membranes moist. No erythema of the oropharynx. Ophtho: Vision grossly intact. CURRENT MEDICATIONS: Include: 1. Heparin per protocol. 2. Pantoprazole 40 daily. 3. Aspirin 81 mg a day. 4. Lipitor 80 mg q.h.s. 5. Losartan 100 mg daily. 6. Plavix 75 a day. PREVIOUS STUDIES: Show an echo with an EF estimated at 50% with inferior wall hypokinesis. EKG shows sinus rhythm with changes consistent with old inferior MO. Otherwise no acute EKG changes. He is also in sinus rhythm with a heart rate of 51 at the time of that study. LABORATORIES: Show white count 7.3, H and H 12.7 and 37.1, platelets of a 182,000. Sodium 137, potassium 4.1, chloride and bicarbonate 102 and 22 respectively. BUN and creatinine 14 and 0.97. Troponins are not elevated. HDL cholesterol is low at 20. LDL is 35. IMAGING: Chest x-ray shows no acute process. IMPRESSION: The patient is status post treatment for a recent acute inferior myocardial infarction at [facility]. He had a drug-eluting stent placed to the right coronary artery at that time. There is a lesion noted in the obtuse marginal branch. This was planned for an elective intervention. He was feeling poorly prior to this on the day prior to this admission and then developed left axillary pain. It does not worsen with exertion. Seems to worsen with deep inspiration but it is not associated with chest tightness or chest pressure or increased shortness of breath. Fortunately he has no acute EKG changes. He has ruled out by serial cardiac markers. He did speak to the ED and requested that he be transferred down to [facility] for further evaluation and he was admitted to the hospital instead. He still has some residual discomfort and again the enzymes are negative. He would prefer to be treated by doctors that have his old cardiac cath films and know him well. For now continue his current cardiac medications. We will discuss his case with his cardiology group and get recommendations from them. 50 minutes was spent reviewing the patient's old records, interviewing the patient and examining him. I also communicated with the hospital team. SAWYER
[2016-10-15] MEDS ORDERED: CARV6.252 PO (11:48)
--- NOTE | 2016-10-15 11:59 | PCM.DIMED ---
Jose Manuel Sheffield DO 10/15/16 1159: Discharge Instructions Date of Service Oct 15, 2016 Dates of Hospitalization Oct 14, 2016 at 21:25 Discharge Diagnosis Discharge Diagnosis 1. Unstable Angina, acute 2. Bradycardia 3. hypertension 4. poorly controlled type II diabetes 5.GERD 6. Arthritis Medication Instructions Carvedilol 12.5 mg every morning by mouth. -Based on your current prescription, this means you need to take 2 pills of the 6.25 mg at the same time every morning. After reviewing the medication list , the patient instructions that you had in your possession, and the information provided to me, this is my interpretation of the intended dose. Diet Heart Healthy, Diabetic Activity Limited until seen by PCP Call your provider Fever or Chills, Shortness of breath, Bleeding, Chest pain, Vomitting, Excessive diarrhea, Weakness (unilateral), Other Patient Instructions Please await phone call this afternoon from Dr. Lackey's office to schedule visit, and discussion for possible intervention. If you experience any signs or symptoms of her repeat heart attack, please do not hesitate to go to the nearest emergency department or call 911. Symptoms to watch out for include chest pain worsening, shortness of breath, lightheadedness, dizziness feeling your heart beat faster heart for no reason, or having a cold sweat. If you have any concerns about any potential symptoms, it is always best to err on the side of caution and have it evaluated. Please take your medication as prescribed. Please ask Dr. Lackey to clarify your prescription list, as well as the instructions on the pill bottles. I provided you a prescription, with 0 pills, with correct information for you to use as a reference. Your heart rate was low throughout her hospital stay, this could be due to the high dose of carvedilol. Follow-up Provider: Efren Lackey MD Follow-up with PCP in: Other (The next two days.) Nieves Calvo DO 10/15/16 1827: Discharge Instructions Attending's Statement The patient was seen and examined together with Dr. Sheffield on 10/15/16 and I agree with the history, exam and plan as outlined in the note above. Jose Manuel Sheffield DO Oct 15, 2016 11:59 Nieves Calvo DO Oct 15, 2016 18:27
[2016-10-15 12:06] VITALS: BP 125/69; PULSE 45; RESP 16; O2SAT 96
--- NOTE | 2016-10-15 13:05 | NUR ---
Discharge note Patient a/o x 4, denies chest pain, nausea or sob. Patient c/o left axilla pain that does not radiate 2/10 declined pain meds. Patient oob indep steady gait. See vitals, tele SB 40-50's. Patient given discharge instructions, medication reconciliation, info on bradycardia and chest pain. No new prescriptions written but teaching done on dosage and precautions of Carvedilol. Patient instructed to check B/P and HR prior to taking Carvedilol and to verify with his Hide Examiner on parameters to hold medication. All questions answered. Patient amb to car with all belongings and discharged home with family.
--- NOTE | 2016-10-15 19:25 | PCM.DC.MED ---
Discharge Summary Date of Service Oct 15, 2016 Dates of Hospitalization Date of Hospital Admission Oct 14, 2016 at 21:25 Date of Discharge: Oct 15, 2016 Providers: Admitting Physician: Wanda Palacio DO Primary Care Physician: Omero Davis MD Attending Physician: Wanda Palacio DO Diagnosis at Time of Discharge Diagnosis at Time of Discharge 1. Unstable Angina, acute 2. Bradycardia 3. hypertension 4. poorly controlled type II diabetes 5.GERD 6. Arthritis Consultations Cardiology Procedures XRay, CTs & MRIs Chest Xray IMPRESSION: No acute process. Dictated by: Ricco Macias M.D. on 10/14/2016 at 20:14 Interpretation / Wet Read by: Interpret - Radiologist ECG 12 Lead ECG Interpretation: Sinus rhythm Rate 54 Inferior and anterior infarct No acute ST segment changes Improved (3 STEMI) Time: 20:31 Interpreted by: ED physician ECG Interpretation: Sinus rhythm Rate 62 Time: 20:35 Interpreted by: ED physician Normal ECG Interpretation: No change from prior ECGs Repeat ECG: Repeat ECG unchanged Reviewed, Agree with interpretation Brief History From Admission Note: "Patient is a 50 y.o. M with a history of hypertension, poorly controlled type II diabetes, recently seen in the ED on 09/18 for substernal chest pain and was transferred to [facility] for an angioplasty after EKG showed acute inferior STEMI, s/p cardiac angiogram two vessel disease marginal vessel and RCA ( one stent to RCA patient scheduled November 03 to have marginal vessel stented in [facility]). Records from [facility] on 09/18 patient show that patient had "emergent angiogram total occlusion of RCA and a 3mm x 28 mm stent was placed. Evidence of residual stenosis was found. Patient will be reevaluated for a PCI in the next 4-6 weeks after evidence of OM1 lesion was found. Echocardiogram revealed EF 50% with inferior hypokinesis." He presented to the ED complaining of intermittent chest pain that began 0900 this morning rated as a 6/10, described as constant lasting for about 10 minutes, made worse with movement and deep breaths, sharp, located to left chest at ribs 6 and 7, radiating to left axilla, associated with worsening shortness of breath, one episode of diaphoresis, fatigue, dizziness with standing. Patient noted that he has been taking double the dosage of Cardizem total 25 mg daily rather than 12.5 due to miscommunication of dosage. Patient noted that symptoms peak in the afternoon and he sough emergency care.Patient stated that chest pain on his left side has been present since his last catheterization but that it was at its worst today. Pain was similar to his last MO, however, arm pain was located on his right arm instead of left. Patient denies fever, chills, nausea, vomiting , abdominal pain, diarrhea, constipation, dysuria, swelling of hands and feet, syncope, change in vision, numbness or tingling. In the ED patient noted to be bradycardic, initial troponin was negative, diaphoretic, EKGs showed no signs of acute ST elevations, shortness of breath resolved on its own prior to ED visit, Chest pain improved minimally with nitroglycerin and relieved completely with morphine. Patient given aspirin, nitroglycerin, morphine, with improvement in chest pain, and started on heparin drip. Cardiology consulted from ED." Hospital Course Patient is a 50 y.o. M with a history of hypertension, poorly controlled type II diabetes, recently seen in the ED on 09/18 for substernal chest pain and was transferred to [facility] for an angioplasty after EKG showed acute inferior STEMI, s/p cardiac angiogram two vessel disease marginal vessel and RCA ( one stent to RCA patient scheduled November 03 to have marginal vessel stented in [facility]). Patient admitted for treatment of unstable angina. He received the below mentioned treatments throughout the night, in the morning he was evaluated by cardiology and was given the option to undergo catheterization at [facility], or be discharged and follow-up with Dr. Efren Lackey. Dr. Lackey's pediatrician/medical doctor was contacted and he spoke with Dr. Lackey about the patient's current situation and stated that he would be able to see Mr. Street this weekend for a possible cath on Tuesday or Tuesday (10/16/16 or 10/17/16). Given the patient is now asymptomatic, and had negative troponins x3, the patient is now in stable condition he elected to follow-up with his insulation estimator in order to have a cardiac cath performed at the same institution for continuity. The patient was discharged home in stable condition with the understanding that he will follow-up with his insulation estimator tomorrow or Tuesday for further workup of his heart. 1. Unstable Angina, acute, present on admission. - In ED patient noted to be bradycardic, hypertensive, symptoms of chest pain with left arm radiation, diaphoresis, improvement with nitroglycerin and morphine - Initial troponin negative - RAMÍREZ score 4 - Continue heparin drip per protocol - Continue ASA 81 mg QD - Continue Atorvastatin 80 mg QD - Continue Clopidogrel 75 mg QD - beta erma held d/t bradycardia - recent increase in dose, as per patient and medication was inadvertently increased by RN above requested dose - PRN nitroglycerin for CP - PRN morphine for CP - PRN EKG for chest pain - Trend Troponin Q6 Chronic conditions hypertension - Continue home medications, Cardizem continue at dose 12.5, discussed adverse effects of taking higher doses of CCBs - Monitored for hypotension poorly controlled type II diabetes - BG normal on admit - Low correctional scale ordered - Held home medications GERD - Protonix Arthritis - Pain control hydrocodone 5-325 mg Q6 PRN CODE STATUS FULL CODE DVT: Clopidogrel, SCDs GI: protonix Discharged the following day to home with close instructions to follow-up with cardiology and to re-present to the emergency department if red flag symptoms recur. Patient stated understanding and agreement, and ambulated off floor. Exam Vital Signs (Last) Date Time Temp Pulse Resp B/P Pulse Ox O2 Delivery O2 Flow Rate FiO2 10/15/16 12:06 36.3 45 16 125/69 96 Room Air Exam General: No acute distress, well-developed, well-nourished, appropriately interactive HEENT: Normocephalic, atraumatic. External ears without defect. Pupils equal, round, and reactive to light and accommodation. Anicteric sclerae, moist conjunctivae, and no lid lag. oral mucosa pink/moist mucosa. Neck: Supple with full range of motion. No jugular venous distension. No bruits. No lymphadenopathy or thyromegaly. Cardiovascular: Bradycardic, regular rhythm with no murmurs, rubs, or gallops appreciated. heart sounds distant. Pulmonary: Clear to auscultation bilaterally with no crackles, wheezes, or rhonchi. Normal respiratory effort with no use of accessory muscles. Abdomen: Bowel tones present. Soft, nontender, nondistended. No hepatosplenomegaly or masses appreciated. Extremities: No clubbing, cyanosis, edema, or lymphadenopathy appreciated. Skin: Normal temperature, turgor, and texture; no rash, ulcers, or subcutaneous nodules appreciated. Neurological: Cranial nerves grossly intact. Normal muscle strength, tone, and bulk. Reflexes, coordination, and sensory function within normal limits. Psychiatric: Normal mood and affect. Alert and oriented to person, place, and time. Lymphatic: No lymphadenopathy noted on exam Test 10/14/16 20:05 10/14/16 20:06 10/15/16 03:30 10/15/16 03:40 Magnesium Level 2.0mg/dL (1.6-2.6) Total Bilirubin 0.6mg/dL (0.0-1.2) Aspartate Amino Transf (AST/SGOT) 23U/L (0-50) Alanine Aminotransferase (ALT/SGPT) 40U/L (0-44) Alkaline Phosphatase 76U/L (25-150) Total Protein 7.1g/dL (6.4-8.4) Albumin 4.0g/dL (3.4-5.0) Hold Plaza Top Tube Received (Received) Prothrombin Time 10.3sec (8.1-12.5) Prothromb Time International Ratio 0.96ratio White Blood Count 7.3th/mm3 (3.8-10.1) Red Blood Count 4.51mil/mm3 (4.40-5.80) Mean Corpuscular Volume 82.3fL (81-100) Mean Corpuscular Hemoglobin 28.2pg (27.0-35.0) Mean Corpuscular Hemoglobin Concent 34.2% (32.0-37.0) Red Cell Distribution Width 13.1% (12.3-15.4) Platelet Count 182bil/L (150-400) Neutrophils (%) (Auto) 41.1% (40-74) Lymphocytes (%) (Auto) 50.2% (14-46) Monocytes (%) (Auto) 7.2% (4-12) Eosinophils (%) (Auto) 1.0% (0-5) Basophils (%) (Auto) 0.4% (0-3) Sodium Level 137mEq/L (134-144) Potassium Level 4.0mEq/L (3.5-5.2) Chloride Level 102mEq/L (97-108) Carbon Dioxide Level 22mmol/L (18-29) Blood Urea Nitrogen 14mg/dL (6-24) Creatinine 0.97mg/dL (0.76-1.27) Estimat Glomerular Filtration Rate 87mL/min (>59) Glucose Level 105mg/dL (60-99) Calcium Level 9.2mg/dL (8.5-10.1) Triglycerides Level 185mg/dL (0-149) Cholesterol Level 92mg/dL (100-199) LDL Cholesterol, Calculated 35.000mg/dL (0-99) VLDL Cholesterol 37.000mg/dL HDL Cholesterol 20mg/dL (>39) Cholesterol/HDL Ratio 4.60 (0.0-4.4) Urine Color Straw (YELLOW) Urine Appearance Clear (CLEAR,HAZY) Urine pH 6.0 (5.0-8.0) Urine Specific [place] 1.009 (1.003-1.035) Urine Protein Negativemg/dL (NEG,TRACE) Urine Glucose (UA) Negativemg/dL (NEGATIVE) Urine Ketones Negativemg/dL (NEGATIVE) Urine Occult Blood Negative (NEGATIVE) Urine Nitrite Negative (NEGATIVE) Urine Bilirubin Negative (NEGATIVE) Urine Urobilinogen Normalmg/dL (NORMAL) Urine Leukocyte Esterase Negative (NEGATIVE) Urine RBC 0-2/hpf (0-2) Urine WBC 0-5/hpf (0-5) Urine Epithelial Cells Occasional/hpf (NONE-MOD) Urine Crystals None seen (NONE SEEN) Urine Bacteria None/hpf (NONE-FEW) Urine Hyaline Casts None/lpf (NONE) Urine Granular Casts None seen (NONE SEEN) Urine Waxy Casts None seen (NONE SEEN) Urine Red Blood Cell Casts None seen (NONE SEEN) Urine White Blood Cell Casts None seen (NONE SEEN) Urine Mucus None seen (None Seen) Urine Trichomonas None seen (NONE SEEN) Urine Yeast None (NONE SEEN) Urinalysis Comment None Urine Culture Reflexed Not indicated Test 10/15/16 09:03 10/15/16 10:38 Hemoglobin 13.2g/dL (13.8-17.2) Hematocrit 38.6% (41.0-50.0) Activated Partial Thromboplast Time 44.2sec (22.8-33.0) Troponin T < 0.010ug/L (0.0-0.011) Discharge Medications Discharge Medications Aspirin (Aspirin) 81 Mg Tablet 81 MG PO QAM (Reported) Atorvastatin (Lipitor) 80 Mg Tablet 80 MG PO HS (Reported) Carvedilol (Carvedilol) 6.25 Mg Tablet 12.5 MG PO DAILY Prescribed by: ZACHERY LAMBERT DO Clopidogrel (Clopidogrel) 75 Mg Tablet 75 MG PO HS (Reported) Glimepiride (Glimepiride) 2 Mg Tablet 2 MG PO DAILYWM (Reported) Losartan Potassium (Losartan Potassium) 50 Mg Tablet 100 MG PO HS (Reported) Metformin ER (Metformin ER) 1,000 Mg Tablet 1,000 MG PO HS (Reported) Omeprazole (Omeprazole) 20 Mg Tablet.dr 20 MG PO HS (Reported) As needed Acetaminophen (Acetaminophen) 325 Mg Tablet 650 MG PO Q4H PRN PRN For Pain ( Reported) Hydrocodone-Acetaminophen 5-325 mg (Hydrocodone-Acetaminophen 5-325 mg) 1 Each Tablet 1 TABLET PO Q6H PRN PRN For Pain (Reported) Nitroglycerin SL (Nitroglycerin SL) 0.4 Mg Tab.subl 0.4 MG SL Q5MIN PRN PRN For Chest Pain (Reported) Additional med instructions Carvedilol 12.5 mg every morning by mouth. -Based on your current prescription, this means you need to take 2 pills of the 6.25 mg at the same time every morning. After reviewing the medication list , the patient instructions that you had in your possession, and the information provided to me, this is my interpretation of the intended dose. Followup Plan Discharge Diet: Heart Healthy, Diabetic Discharge Activity: Limited until seen by PCP Patient Instructions Please await phone call this afternoon from Dr. Lackey's office to schedule visit, and discussion for possible intervention. If you experience any signs or symptoms of her repeat heart attack, please do not hesitate to go to the nearest emergency department or call 911. Symptoms to watch out for include chest pain worsening, shortness of breath, lightheadedness, dizziness feeling your heart beat faster heart for no reason, or having a cold sweat. If you have any concerns about any potential symptoms, it is always best to err on the side of caution and have it evaluated. Please take your medication as prescribed. Please ask Dr. Lackey to clarify your prescription list, as well as the instructions on the pill bottles. I provided you a prescription, with 0 pills, with correct information for you to use as a reference. Your heart rate was low throughout her hospital stay, this could be due to the high dose of carvedilol. Follow-up Provider: Efren Lackey MD Follow-up with PCP in: Other (The next two days.) Time spent Greater than 40 minutes Attending Statement The patient was seen and examined together with Dr. Sheffield on 10/15/16 and I have added additional information to the note above. copies to: Efren Lackey MD, Noah M DO Oct 15, 2016 19:25 Nieves Calvo DO Oct 16, 2016 15:08
== END 2016-10-15 13:05 | disposition home or self-care (01) ==
LOC: SED 19:26 → PCC 21:25
PROVIDERS: ADMIT Internal Medicine; ATTEND Internal Medicine
DX: I20.0 Unstable angina (principal); R00.1 Bradycardia, unspecified; I10 Essential (primary) hypertension; Z87.891 Personal history of nicotine dependence; E11.9 Type 2 diabetes mellitus without complications; Z79.84 Long term (current) use of oral hypoglycemic drugs; I21.19 ST elevation (STEMI) myocardial infarction involving other coronary artery of inferior wall; I25.10 Atherosclerotic heart disease of native coronary artery without angina pectoris; Z95.5 Presence of coronary angioplasty implant and graft; K21.9 Gastro-esophageal reflux disease without esophagitis; M19.91 Primary osteoarthritis, unspecified site
CPT/HCPCS: 36415; 71010; 80048; 80053; 80061; 81000; 83036; 83735; 84484; 85014; 85018; 85025; 85610; 85730; 93005; J1644; J1815; J2270; J7030

== ENCOUNTER 2017-04-04 12:30 | Observation (INO) | payer OTHER ==
[~2017-04-04] VITALS: Ht 188 cm; Wt 130.8 kg
[2017-04-04] VITALS (7 sets, daily range): BP systolic 131–162; BP diastolic 82–105; PULSE 57–86; RESP 15–20; O2SAT 94–98
[~2017-04-04 12:30] MED LIST changes: +ACET325T51 PO; +ASPI-973 PO; +ATOR80TA PO; +CARV6.252 PO; +CLOP75TA28 PO; +GLIM2TAB2 PO; +HYDR-4003 PO; +NITR0.4T38 SL; -OMEP1PAC5 PO; +OMEP20TA86 PO
--- NOTE | 2017-04-04 12:44 | ED.REPORT ---
HPI-Chest Pain 40 and Over Date of Service Apr 04, 2017 ED Provider: Altaf Dunn MD A 51 year old male on aspirin and Plavix with a history of hypertension, diabetes, pneumonia and IN with stent placement in 10/2016 presents to the ED complaining of chest pain. The pt began to experienced substernal chest pain radiating into his right arm at 06:00 this morning, and it has been worsening since. This is accompanied by dizziness, headache and nausea, though the pt denies vomiting. These are the same symptoms that the pt experienced during his IN in 10/2016, though the chest pain is slightly less severe. Nursing Notes Stated Complaint: CHEST PAIN / PAIN IN ARMPIT Chief Complaint: Chest Pain Nursing Notes Reviewed: Yes Allergies: Coded Allergies: codeine (Verified Adverse Reaction, Intermediate, HALLUCINATION, BEHAVIOR CHANGES, 04/04/17) Scheduled Aspirin (Aspirin) 81 Mg Tablet 81 MG PO QAM Atorvastatin (Lipitor) 80 Mg Tablet 80 MG PO HS Carvedilol (Carvedilol) 6.25 Mg Tablet 3.125 MG PO BID Clopidogrel (Clopidogrel) 75 Mg Tablet 75 MG PO HS Glimepiride (Glimepiride) 2 Mg Tablet 2 MG PO DAILYWM Losartan Potassium (Losartan Potassium) 50 Mg Tablet 50 MG PO HS Metformin ER (Metformin ER) 1,000 Mg Tablet 1,000 MG PO DAILYWD Pantoprazole DR (Pantoprazole DR) 20 Mg Tablet.dr 20 MG PO BIDAC Scheduled PRN Acetaminophen (Acetaminophen) 325 Mg Tablet 650 MG PO Q4H PRN PRN For Pain Nitroglycerin SL (Nitroglycerin SL) 0.4 Mg Tab.subl 0.4 MG SL Q5MIN PRN PRN For Chest Pain General Time Seen by MD: 12:41 Chief Complaint Chest pain Hx Obtained From: Patient Arrived By: Walk-in Sudden in Onset?: No Onset Occurred: 5 - 8 hours ago Symptom Duration: Since onset Recent Healthcare: Recent doctor visit, Recent hospitalization Similar Sx Previous: Yes Past Medical History Past Medical History Notes: PCP: Dr. Omero Davis Cardiology: Dr. Efren Lac[facility] Past Medical History IN Hypertension DM Hx pneumonia GERD Arthritis Past Surgical History Appendectomy R ankle Stent Family History CAD in mother s/p stent (50+) Smoking History Former Smoker Social History Alcohol Use: "Social" Drug Use: Denies drug use Other Social History: Good social support, Local resident Ambulatory Status Independent Review of Systems Respiratory: Denies: Non-productive cough, Shortness of breath Cardiovascular: Reports: Chest pain GI: Reports: Nausea, Denies: Abdominal pain, Vomiting Musculoskeletal: Reports: Extremity pain, Denies: Neck pain Skin: Denies Rash Neurologic: Reports: Dizziness, Headache Complete sys rev & neg: except as marked. Physical Exam Initial Vital Signs Vital Signs (First) Date Time Temp Pulse Resp B/P Pulse Ox O2 Delivery O2 Flow Rate FiO2 04/04/17 12:38 82 15 162/105 98 Room Air 04/04/17 13:22 36.2 Initial VS: Reviewed General/Constitutional: Awake, Alert Respiratory / Chest: Atraumatic, Breath sounds NL, Breath sounds = bilat, No respiratory distress Cardiovascular: Heart rate NL, Regular rhythm, Heart sounds NL Abdomen: Atraumatic, Soft, Non-tender Neck: Atraumatic, Supple, Full range of motion Back: Atraumatic, Full range of motion Lower Extremity / Pelvis / MS: Atraumatic, Full range of motion Skin: Atraumatic, Color NL, No rash, Warm, Dry Neurologic: Oriented X3, Speech NL, No motor deficits, No sensory deficits Psychiatric: Affect NL, Mood NL Head / Eyes: Atraumatic, Normocephalic, PERRL, EOMI ENT: Atraumatic, Airway patent, Mucous membranes moist Upper Extremity / MS: Atraumatic, Full range of motion Interpretation & Diagnostics Lab Results Interpretation Result Diagram: 04/04/17 1244 04/04/17 1244 Test 04/04/17 12:44 White Blood Count 8.1th/mm3 (3.8-10.1) Red Blood Count 5.26mil/mm3 (4.40-5.80) Hemoglobin 15.2g/dL (13.8-17.2) Hematocrit 42.9% (41.0-50.0) Mean Corpuscular Volume 81.6fL (81-100) Mean Corpuscular Hemoglobin 28.9pg (27.0-35.0) Mean Corpuscular Hemoglobin Concent 35.4% (32.0-37.0) Red Cell Distribution Width 13.2% (12.3-15.4) Platelet Count 227bil/L (150-400) Neutrophils (%) (Auto) 49.6% (40-74) Lymphocytes (%) (Auto) 40.9% (14-46) Monocytes (%) (Auto) 7.8% (4-12) Eosinophils (%) (Auto) 1.2% (0-5) Basophils (%) (Auto) 0.4% (0-3) Activated Partial Thromboplast Time 27.6sec (22.8-33.0) Sodium Level 139mEq/L (134-144) Potassium Level 4.1mEq/L (3.5-5.2) Chloride Level 101mEq/L (97-108) Carbon Dioxide Level 21mmol/L (18-29) Blood Urea Nitrogen 8mg/dL (6-24) Creatinine 0.87mg/dL (0.76-1.27) Estimat Glomerular Filtration Rate 99mL/min (>59) Glucose Level 198mg/dL (60-99) Calcium Level 9.3mg/dL (8.5-10.1) Magnesium Level 2.0mg/dL (1.6-2.6) Total Bilirubin 0.6mg/dL (0.0-1.2) Aspartate Amino Transf (AST/SGOT) 20U/L (0-50) Alanine Aminotransferase (ALT/SGPT) 31U/L (0-44) Alkaline Phosphatase 94U/L (25-150) Troponin T < 0.010ug/L (0.0-0.011) Total Protein 8.0g/dL (6.4-8.4) Albumin 4.4g/dL (3.4-5.0) Hold Plaza Top Tube Received (Received) ECG Interpretation ECG Interpretation: no STEMI T wave inversions in II, III and aVF, unchanged from previous no ST elevation Time: 12:43 Interpreted by: ED physician X-Ray Chest Interpretation Chest Xray Interpretation: IMPRESSION: No acute cardiopulmonary disease process. Dictated by: Hiral Cowan MD, PhD on 04/04/2017 at 12:11 Approved by: Hiral Cowan MD, PhD on 04/04/2017 at 12:11 Interpretation / Wet Read by: Interpret - Radiologist Re-Eval/Medical Decision Med Decision/Clinical Course 51-year-old male history of inferior STEMI earlier this year, 3 stents placed RCA, presenting with the same pain substernal radiating to his right armpit. It resolved with nitroglycerin. No EKG changes. He does have T-wave inversions in inferior leads which is consistent with previous. Discussed with cardiology who agrees with admission and heparinization. We will trend troponins. Requesting records from [place] where his cath was performed. Time of Eval: 12:41 Re-Evaluation/Progress Note: Pt informed of the diagnosis and plan for admission during the initial interview. The pt understands and agrees with the plan. All questions are addressed at this time. Consultation #1: Referral / Consult Name: Nieves Calvo DO Consulted With: Hospitalist Call Returned at: 14:19 Travel Trailer Components Assembler: Agrees with eval, Agrees with plan, Accepts admit Note: Spoke with Dr. Calvo, hospitalist, regarding pt's case. Dr. Calvo agrees with the evaluation and agrees to admit the pt. Consultation #2: Referral / Consult Name: Marlee Liu MD Consulted With: Cardiology Call Returned at: 14:22 Travel Trailer Components Assembler: Agrees with eval, Agrees with plan Note: Spoke with Dr. Liu, line mechanic, regarding to pt's case. Dr. Gaitan agrees with the evaluation and plan for admission. Counseled Regarding: Diagnosis, Lab results, Need for admission Discharge & Departure Primary Impression: Chest pain Chest pain type: unspecified Qualified Code: R07.9 - Chest pain, unspecified Disposition: ADMITTED TO HOSPITAL Discharge Condition All VS Reviewed: Yes Condition: Stable Referrals: Omero Davis MD (PCP) Crit Care Except Billable Proc Time Spent: 75-104 minutes (100 minutes) Services Performed: Time spent at bedside, Reviewing test results, Reviewing imaging, Discussing patient care, Documentation in record, Time with fam/ surrogate Scribe Attestation Portions of this note were transcribed by Marisol Cottrell. I, Dr. Dunn personally performed the history, physical exam and medical decision-making; I reviewed and confirmed the accuracy of the information in the transcribed note. copies to: Omero Davis MD, Ben M MD Apr 04, 2017 12:44 MARISOL COTTRELL Apr 04, 2017 13:00
[2017-04-04 13:02] LABS: BASOPHILS % (AUTO) 0.4 % (0-3); EOSINOPHILS % (AUTO) 1.2 % (0-5); MONOCYTES % (AUTO) 7.8 % (4-12); Mean Corpuscular Hemoglobin 28.9 pg (27.0-35.0); Mean Corpuscular Volume 81.6 fL (81-100); NEUTROPHILS % (AUTO) 49.6 % (40-74); Platelet Count 227 bil/L (150-400)
--- NOTE | 2017-04-04 13:13 | DRSVH ---
PROCEDURE: X-RAY CHEST ONE VIEW, PORTABLE ([id number]) INDICATIONS: Chest pain. TECHNIQUE: One view of the chest was acquired. COMPARISON: [facility], CR, XR CHEST 1VW (PORTABLE), 09/18/2016, 16:05. [facility], CR, XR CHEST 1VW (PORTABLE), 10/14/2016, 19:43. FINDINGS: Surgical changes and devices: None. Lungs and pleura: No pleural effusions or pneumothorax. Lungs are clear. Mediastinum: Mediastinal contours appear normal. Heart size is normal. Bones and chest wall: No suspicious bony lesions. Overlying soft tissues appear unremarkable. IMPRESSION: No acute cardiopulmonary disease process. Dictated by: Hiral Cowan MD, PhD on 04/04/2017 at 12:11 Approved by: Hiral Cowan MD, PhD on 04/04/2017 at 12:11
[2017-04-04 13:33] LABS: TROPONIN T < 0.010 ug/L (0.0-0.011)
[2017-04-04] MEDS ORDERED: Heparin 5,000 Unit/mL Inj IVPUSH ONE (13:40)
[2017-04-04] MEDS ORDERED: Heparin 25K Unit/500mL 0.45 NS 25,000 UNIT in IV Premix 1 EACH IV ONE (13:40)
[2017-04-04] MEDS ORDERED: PANT20TA2 PO (14:01)
[2017-04-04] MEDS ORDERED: Alum-Mag Hydrox-Simeth 30 mL Suspension PO PRN ×2 (14:20→16:25)
[2017-04-04] MEDS ORDERED: Ondansetron 2 mg/mL 2 mL Inj IVPUSH PRN ×2 (14:20→16:25)
[2017-04-04] MEDS ORDERED: CARV6.252 PO (14:24)
--- NOTE | 2017-04-04 15:59 | NUR ---
Admit to PCC Pt admitted to PCC room 2025 from ED. Report received from Raisa BORJA. Pt transported in [facility] and was able to transfer independently into room bed. Pt is alert, oriented KOWALSKI. Heparin drip running at 1000 units/hr.
[2017-04-04] MEDS ORDERED: Heparin 25K Unit/500mL 0.45 NS 25,000 UNIT in IV Premix 1 EACH IV SCH (16:25)
[2017-04-04] MEDS ORDERED: Polyethylene Glycol (PEG) 17 Gm Powder PO PRN (16:25)
[2017-04-04] MEDS ORDERED: Glucose 40% Oral Gel 15 Gm Tube PO PRN (16:30)
[2017-04-04 16:59] LABS: APPEARANCE,URINE CLEAR (CLEAR,HAZY); COLOR,URINE STRAW (YELLOW); OCCULT BLOOD,URINE NEGATIVE (NEGATIVE); PH,URINE 5.5 (5.0-8.0); UROBILINOGEN,URINE NORMAL (NORMAL)
[2017-04-04] MEDS ORDERED: Dextrose 10% 250 ML IV PRN (17:00)
[2017-04-04] MEDS: Insulin LISPRO 300 Unit/3 mL Inj SUBQ SCH ×2 (17:30→22:00)
--- NOTE | 2017-04-04 17:53 | PCM.HPMED ---
Subjective Date of Service Apr 04, 2017 Primary Provider: Admitting Physician: Nieves Calvo DO Primary Care Physician: Omero Davis MD Attending Physician: Nievse Calvo DO Admit Status: From the Emergency Department Chief Complaint: chest pain History of Present Illness: Mr. Street is a 51 year old male, with a past medical history significant for hypertension, type II diabetes mellitus, Atherosclerotic Coronary Artery Disease s/p right coronary artery and left circumflex coronary artery PCI X3 stents in September of this year who presented to the ED with substernal chest pain radiating to the right axilla. Patient states that the chest pain began at 1:30 am, after he woke up for work. He describes it as a dull ache at the center of his chest, rating 5/10. He was able to go to work, but started experiencing radiation of pain to R axilla later in the morning. Patient states that he had nitroglycerin on hand. However, he did not take anything to help with pain, and nothing seemed to make it worse. He presented to the ED because he felt as if the pain was similar to when he had a STEMI. Patient denies visual changes, SOB , palpitations, nausea, vomiting, abdominal pain, orthopnea and exertional dyspnea. ED course: Vitals at presentation: 162/105 HR: 82 RR: 15 O2: 98% at room air Temp: 97.9. Labs reviewed showing glucose of 198, troponin <0.010. CXR: no acute pulmonary disease process. EKG reviewed: sinus rhythm, HR: 75, left axis deviation,T wave inversions in II, III and aVF, unchanged from previous and no ST elevation . Patient was given nitro 0.4mg 2x, morphine, ondansetron, acetaminophen, started on heparin drip and admitted for ACS rule out. Review of Systems: ROS: A complete review of systems was performed and negative except for pertinent positives noted in HPI and below General: feels tired with some dizziness, denies fever/chills, no unintentional weight loss, no generalized weakness HEENT: has headache, denies changes in vision or hearing Respiratory: no shortness of breath Cardio: currently has mild chest pain, denies palpitations, orthopnea, or exertional dyspnea GI: denies nausea or vomiting, no diarrhea or constipation, no abdominal pain : denies urinary frequency, hesitancy, or urgency, no hematuria Neuro: denies slurred speech, no numbness/tingling, no muscle weakness Allergies Coded Allergies: codeine (Verified Adverse Reaction, Intermediate, HALLUCINATION, BEHAVIOR CHANGES, 04/04/17) Home Medications Aspirin (Aspirin) 81 Mg Tablet 81 MG PO QAM Atorvastatin (Lipitor) 80 Mg Tablet 80 MG PO HS Carvedilol (Carvedilol) 6.25 Mg Tablet 12.5 MG PO DAILY Clopidogrel (Clopidogrel) 75 Mg Tablet 75 MG PO HS Glimepiride (Glimepiride) 2 Mg Tablet 2 MG PO DAILYWM Losartan Potassium (Losartan Potassium) 50 Mg Tablet 50 MG PO HS Metformin ER (Metformin ER) 1,000 Mg Tablet 1,000 MG PO DAILYWD Pantoprazole DR (Pantoprazole DR) 20 Mg Tablet.dr 20 MG PO BIDAC Acetaminophen (Acetaminophen) 325 Mg Tablet 650 MG PO Q4H PRN PRN For Pain Hydrocodone-Acetaminophen 5-325 mg (Hydrocodone-Acetaminophen 5-325 mg) 1 Each Tablet 1 TABLET PO Q6H PRN PRN For Pain Nitroglycerin SL (Nitroglycerin SL) 0.4 Mg Tab.subl 0.4 MG SL Q5MIN PRN PRN For Chest Pain PMH Hypertension, DM Type II, hyperlipidemia, GERD, Acute Myocardial Infarction, Atherosclerotic Coronary Artery Disease s/p right coronary artery and left circumflex coronary artery PCI X3 stents Surgical History cardiac catheterization s/p stent placement X3, appendectomy, L ankle surgery Family History mother: heart disease ([place] at late 50s/early 60s), father: DM 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, PE: BP: 129/68 HR: 78 RR: 20 Temp: 97.9 O2: 98% at room air General: alert and oriented, in no apparent distress, well developed and well nourished HEENT: normocephalic and atraumatic, EOMI except no lateral gaze in R eye Heart: RRR, no murmurs, rubs, or gallops Lungs: clear to auscultation bilaterally, no rales, rhonchi, or wheezing Abdomen: soft, non-tender, non-distended, no palpable mass, bowel sounds present in all four quadrants Extremities: no edema, no rashes, bruises, or lesions noted Neuro: muscle strength 5/5, sensation grossly intact CODE STATUS: full code Social History 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 Hx Alcohol Use: Yes ("A little bit") Hx Substance Use: No Hx Tobacco Use: Yes Smoking Status: Former Smoker Living Arrangement: with Family Additional Information quit smoking 15 years ago (smoked ppd), currently chews tobacco for 30 years ( 1/2 can per day), occasional alcohol use, denies illicit drug use Exam Vital Signs Vital Sign - Last Date Time Temp Pulse Resp B/P Pulse Ox O2 Delivery O2 Flow Rate FiO2 04/04/17 15:52 36.7 72 18 144/89 96 Room Air Exam General: alert and oriented, in no apparent distress, well developed and well nourished HEENT: normocephalic and atraumatic, EOMI except no lateral gaze in R eye Heart: RRR, no murmurs, rubs, or gallops Lungs: clear to auscultation bilaterally, no rales, rhonchi, or wheezing, no use of accessory muscles Abdomen: soft, non-tender, non-distended, no palpable mass, bowel sounds present in all four quadrants Extremities: no edema, no rashes, bruises, or lesions noted Skin: Warm and Dry Neuro: muscle strength 5/5, sensation grossly intact Psych: Normal mood and affect Lab and Diagnostics Labs Laboratory Tests Test 04/04/17 12:44 04/04/17 16:39 White Blood Count 8.1th/mm3 (3.8-10.1) Red Blood Count 5.26mil/mm3 (4.40-5.80) Hemoglobin 15.2g/dL (13.8-17.2) Hematocrit 42.9% (41.0-50.0) Mean Corpuscular Volume 81.6fL (81-100) Mean Corpuscular Hemoglobin 28.9pg (27.0-35.0) Mean Corpuscular Hemoglobin Concent 35.4% (32.0-37.0) Red Cell Distribution Width 13.2% (12.3-15.4) Platelet Count 227bil/L (150-400) Neutrophils (%) (Auto) 49.6% (40-74) Lymphocytes (%) (Auto) 40.9% (14-46) Monocytes (%) (Auto) 7.8% (4-12) Eosinophils (%) (Auto) 1.2% (0-5) Basophils (%) (Auto) 0.4% (0-3) Activated Partial Thromboplast Time 27.6sec (22.8-33.0) Sodium Level 139mEq/L (134-144) Potassium Level 4.1mEq/L (3.5-5.2) Chloride Level 101mEq/L (97-108) Carbon Dioxide Level 21mmol/L (18-29) Blood Urea Nitrogen 8mg/dL (6-24) Creatinine 0.87mg/dL (0.76-1.27) Estimat Glomerular Filtration Rate 99mL/min (>59) Glucose Level 198mg/dL (60-99) Calcium Level 9.3mg/dL (8.5-10.1) Magnesium Level 2.0mg/dL (1.6-2.6) Total Bilirubin 0.6mg/dL (0.0-1.2) Aspartate Amino Transf (AST/SGOT) 20U/L (0-50) Alanine Aminotransferase (ALT/SGPT) 31U/L (0-44) Alkaline Phosphatase 94U/L (25-150) Troponin T < 0.010ug/L (0.0-0.011) Total Protein 8.0g/dL (6.4-8.4) Albumin 4.4g/dL (3.4-5.0) Hold Plaza Top Tube Received (Received) Urine Color Straw (YELLOW) Urine Appearance Clear (CLEAR,HAZY) Urine pH 5.5 (5.0-8.0) Urine Specific [place] 1.010 (1.003-1.035) Urine Protein Negativemg/dL (NEG,TRACE) Urine Glucose (UA) 100mg/dL (NEGATIVE) Urine Ketones Negativemg/dL (NEGATIVE) Urine Occult Blood Negative (NEGATIVE) Urine Nitrite Negative (NEGATIVE) Urine Bilirubin Negative (NEGATIVE) Urine Urobilinogen Normalmg/dL (NORMAL) Urine Leukocyte Esterase Negative (NEGATIVE) Urine RBC 0-2/hpf (0-2) Urine WBC 0-5/hpf (0-5) Urine Epithelial Cells None/hpf (NONE-MOD) Urine Crystals None seen (NONE SEEN) Urine Bacteria None/hpf (NONE-FEW) Urine Hyaline Casts None/lpf (NONE) Urine Granular Casts None seen (NONE SEEN) Urine Waxy Casts None seen (NONE SEEN) Urine Red Blood Cell Casts None seen (NONE SEEN) Urine White Blood Cell Casts None seen (NONE SEEN) Urine Mucus None seen (None Seen) Urine Trichomonas None seen (NONE SEEN) Urine Yeast None (NONE SEEN) Urinalysis Comment None Urine Culture Reflexed Not indicated Result Diagram: 04/04/17 1244 04/04/17 1244 X-Rays, CTs and MRIs PROCEDURE: X-RAY CHEST ONE VIEW, PORTABLE ([id number]) IMPRESSION: No acute cardiopulmonary disease process. Dictated by: Hiral Cowan MD, PhD on 04/04/2017 at 12:11 12-lead ECG ECG Interpretation: no STEMI T wave inversions in II, III and aVF, unchanged from previous no ST elevation Time: 12:43 Interpreted by: ED physician Assessment & Plan Mr. Street is a 51 year old male, with a past medical history significant for hypertension, type II diabetes mellitus, Atherosclerotic Coronary Artery Disease s/p right coronary artery and left circumflex coronary artery PCI X3 stents in September 2016 who presented to the ED with substernal chest pain radiating to the right axilla. Patient is being admitted for treatment of unstable angina and ACS rule out. Unstable Angina, acute, present on admission - In ED patient noted to have substernal chest pain radiating to right axilla. -Patient was hypertensive, initial troponin <.010. EKG revealed sinus rhythm, HR : 75, left axis deviation,T wave inversions in II, III and aVF, unchanged from previous and no ST elevation . -Patient was given nitro 0.4mg 2x, morphine, ondansetron, acetaminophen, started on heparin drip. improvement with nitroglycerin and morphine -Patient has a hx of MN and CAD s/p PCI X3 stents - RAMÍREZ score 4 - Continue heparin drip per protocol - Continue ASA 81 mg QD - Continue Atorvastatin 80 mg QHS - Continue Clopidogrel 75 mg QD - Continue Mrnqsdejse39.5 MG PO DAILY - PRN nitroglycerin for CP - PRN morphine for CP - PRN EKG for chest pain - Trend Troponin Q6 - Repeat CBC and BMP in AM - Cardiology, Dr. Liu was consulted and will see patient in the am -NPO after midnight for possible cardiac stress test in the am Chronic conditions Hypertension, chronic, present on admission - Continue home medications, as above - Monitor for hypotension Type II diabetes Mellitus, chronic, present on admission - BG elevated on admit at 198 - Medium dose correctional scale ordered - Hold home medications -Most Recent A1C 6.5 on September 2016 -Ordered A1c Gastroesophageal Reflux Disease, chronic, present on admission - Continue pantoprazole 20 mg po bid Hyperlipidemia, chronic -Continue Atorvastatin -Order lipid panel Patient Status: Patient is admitted under observation status. Length of stay likely less than 2 midnights. Code Status: Full code GI Prophylaxis: Pantoprazole DVT Prophylaxis: Heparin gtt Pain Evaluation: Adequate Pain Control GI Prophylaxis: Proton Pump Inhibitor VTE Prophylaxis: Other (heparin gtt) VTE Mechanical Devices: Intermittant Pneumatic CD Resuscitation Status: CPR: Attempt Resuscitation Time spent greater than 45 minutes Attending Statement The patient was seen and examined together with Dr. Murry on 04/04/17 and I have added additional information to the note above. Radha Murry DO Apr 04, 2017 16:36 Nieves Calvo DO Apr 05, 2017 14:04
--- NOTE | 2017-04-04 18:22 | PCM.ADCARE ---
Advance Care Planning Note Time Spent Adv.Care Planning: Date: 04/04/2017 Diagnosis: Unstable angina with history of stent placement Diabetes type II Hypertension GERD Hyperlipidemia Purpose of encounter: Goals of care Parties in attendance: The patient, Dr. Calvo, his stepdaughter, Dr. Murry Decisional capacity: Good Plan: The patient is aware of the current diagnosis and would like to continue to be full code. The patient understands that this means for chest compressions , intubation, pressors, and all measures involved with CPR. CODE STATUS: Full code Time spent with advanced care planning: Greater than 16 minutes Nieves Calvo DO Apr 04, 2017 18:22
[2017-04-04] MEDS: Pantoprazole 20 mg ER24 Tablet PO SCH (18:32)
[2017-04-04] MEDS: Heparin 5,000 Unit/mL Inj IVPUSH PRN (23:31)
[2017-04-05 04:02] VITALS: BP 139/81; PULSE 57; RESP 15; O2SAT 95
[2017-04-05 04:28] LABS: BASOPHILS % (AUTO) 0.2 % (0-3); EOSINOPHILS % (AUTO) 1.2 % (0-5); MONOCYTES % (AUTO) 8.5 % (4-12); Mean Corpuscular Volume 81.7 fL (81-100); NEUTROPHILS % (AUTO) 45.5 % (40-74); Platelet Count 193 bil/L (150-400)
[2017-04-05 05:23] LABS: TROPONIN T 0.01 ug/L (0.0-0.011)
--- NOTE | 2017-04-05 05:54 | NUR ---
Care note Assumed care ~2129 from Raisa Williamson RN. Pt. a/o, denies pain or discomfort. . NPO after MN, with plans for cardiac consult and potential ETT w/MIBI. Heparin infusing. VSS, HR SR with periods of Sinus Tk (upper 30's to 50's). notified (Dr. Hamlin), here to see pt - no new orders received.
[2017-04-05] MEDS: Insulin LISPRO 300 Unit/3 mL Inj SUBQ SCH ×2 (08:00→12:00)
[2017-04-05 08:10] VITALS: BP 139/82; PULSE 56; RESP 18; O2SAT 96
[2017-04-05] MEDS: Pantoprazole 20 mg ER24 Tablet PO SCH (08:12)
--- NOTE | 2017-04-05 10:55 | CONS ---
[address] [address] CONSULTATION REPORT PATIENT: PRUDENCE SCHNEIDER : 1965 MR#: [id number] ADMIT: 04/04/2017 JOB ID: [id number] DATE OF SERVICE: 04/05/2017 CHIEF COMPLAINT: I was asked to consult on this patient given admission with chest discomfort. HISTORY OF PRESENT ILLNESS: The patient is a 51-year-old man, who has history of hypertension, diabetes, had a history of acute RI in September 2016, for which he had a drug-eluting stent placed to the right coronary artery. EF at that time was estimated EF with inferior wall hypokinesis. At the time of the initial cardiac assessment, the patient also had an obtuse marginal lesion which was identified. This was staged, to be treated at a later time. He was taken back in October 2016 where he had a stent placed to a high-grade stenosis in the first obtuse marginal branch. This was also a drug-eluting stent. EKG in September after the inferior STEMI showed T-wave changes inferiorly with some residual ST changes. He has generally been doing well without any problems. He says he had a follow up at some point, but he cannot recall when, at the [facility]. On Tuesday, he just was not feeling well, feeling kind of tired and took a rest, and that seemed to feel better. Tuesday, felt pretty good. Tuesday he just woke up and had like he had a persistent low-grade discomfort in his chest that did not worsen with exertion. It did not go away. It might have worsened with deep inspiration. He did not feel any nausea, diaphoresis, palpitations, presyncope or syncope. He did feel a little bit dizzy though, but that seems to have resolved. He came into the ED where the EKG showed sinus rhythm with T-wave changes in the inferior leads. Otherwise, no acute ST-T wave changes. He was in sinus bradycardia. In the interim, he is now ruled out by serial cardiac markers. He says he has no symptoms at this time. His initial symptoms when he had a STEMI were right axilla pain. He did have some of this yesterday, but this again has all resolved at this juncture. Currently, he denies orthopnea, PND, lower extremity edema as well. Any dizziness he might have had has also resolved. PAST MEDICAL HISTORY/PROBLEM LIST: 1. History of coronary disease with history of stents to the right coronary artery as well as the obtuse marginal branch and circumflex artery. 2. Diabetes mellitus. 3. Hyperlipidemia. 4. Hypertension. CURRENT MEDICATIONS AT HOME: Include: 1. Aspirin 81 mg a day. 2. Lipitor 80 mg q.h.s. 3. Carvedilol 12.5 mg daily, which I assume is a long-acting formulation. 4. Plavix 75 daily. 5. Glimepiride 2 mg daily. 6. Losartan 50 mg q.h.s. 7. Metformin 1000 mg daily. 8. Pantoprazole. ALLERGIES: CODEINE. SOCIAL HISTORY: Tobacco use. No significant alcohol use. FAMILY HISTORY: Mother with heart disease at an early age. REVIEW OF SYSTEMS: Overall health: No fevers, chills, night sweats, or weight loss. GI: No nausea, vomiting, blood in stool. : No dysuria, hematuria. Pulmonary: No history of increased shortness of breath. Cardiac: As per HPI. Musculoskeletal: No acute joint issues. Neuro: A little bit of dizziness, now resolved. No chronic headaches. Derm: No new rashes or skin breakdown. Ophtho: No acute vision changes. ENT: No difficultly swallowing. No hearing changes. All review of systems on a 12-point review of systems are negative. PHYSICAL EXAMINATION: Blood pressure is 139/82, heart rate is 56, respiratory rate 18, sats are 96% on room air. General: In no acute distress. Speaking in full sentences without pressure. Head and neck exam: Normocephalic, atraumatic. Vascular: No carotid bruits appreciated. Heart exam: Regular rate and rhythm. I do not appreciate murmurs, gallops, rubs. Lungs sound clear. Back: No CVA tenderness to palpation. Abdomen: Soft, nontender. Extremities: Warm, no appreciable edema. 1+ distal pulses. Skin without breakdown appreciated. Neuro: Alert and oriented x3. Gait is not tested. Psych: Appropriate mood affect. Ophtho: Vision grossly intact. ENT: Hearing grossly intact. Mucous membranes moist. DIAGNOSTIC STUDIES: EKG is noted. LABORATORIES: Show a sodium 140, potassium 4.1, chloride and bicarb of 102 and 20, respectively. BUN and creatinine 11 and 1.038. Troponins all negative. Hematology shows a white count 9.1, H and H 14.1 and 39.8, platelets of 193,000. INPATIENT MEDICATIONS: Review of his current inpatient medications shows that the carvedilol dose that was written in the H and P does not necessarily match the one here. It is written as 3.125 b.i.d. He is on aspirin, Plavix and high-dose Lipitor. IMPRESSION: The patient has had some symptoms starting on Tuesday, somewhat vague in nature, not necessarily initially associated with anything that he thought was related to his heart. On Tuesday, he had a dull discomfort which did not necessarily worsen or improve. At one point, he also had some right axillary discomfort which made him concerned that he might have a recurrence of his heart issues. He is now ruled out by serial cardiac markers. EKG shows no acute changes. PLAN: 1. I think we should do a treadmill on him given his recent diagnosis of coronary disease. He will do this on his medications. This will be a symptom limited stress test. 2. If the stress test looks fine, he should have a close follow up with his primary pad cutter in [place]. I spent 35 minutes speaking with the patient reviewing old records and current findings. SAWYER
[2017-04-05 11:24] VITALS: PULSE 50
[2017-04-05] MEDS: Heparin 5,000 Unit/mL Inj IVPUSH PRN (11:40)
--- NOTE | 2017-04-05 12:00 | NUR ---
Social Work: Initial Assessment/Multidisciplinary Rounds D: Per EMR review, pt is a 51 year old male admitted for chest pain. The patient is [employer] Service Plan; the patient has no LTC or VA benefits. PCP is Omero Davis MD. NOK is [address], , . Advanced directives not completed- information provided. Readmit score is high, 3/8. Pt discussed in multidisciplinary rounds; capacity for self-care discussed. No concerns or needs identified at this time. AUTO BATTERY BUILDER met with the patient and spouse at bedside. SW role explained, contact information and d/c planning checklist provided. Pt lives at home in [place] with his . Pt is I at baseline with all ADLs and mobility. Pt uses no DME and continues to drive. No HH or skilled rehab history. Pt anticipates d/c home when ready with daughter to transport. EMR reviewed; no sw needs identified at this time. 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 P: Anticipate pt to discharge home via POV once medically stable. AUTO BATTERY BUILDER to continue to follow to assess for unmet needs. DAVID Guadarrama Addendum: 04/05/17 at 1735 by BENITO NOGUERA Amended: Links added.
--- NOTE | 2017-04-05 15:19 | PCM.DIMED ---
ROSALINDA BUTTERFIELD DO 04/05/17 1519: Discharge Instructions Date of Service Apr 05, 2017 Dates of Hospitalization Apr 04, 2017 at 14:19 Discharge Diagnosis Discharge Diagnosis Unstable Angina Chronic Conditions Hypertension Type II diabetes Mellitus Gastroesophageal Reflux Disease Hyperlipidemia Medication Instructions Additional med instructions Please continue to take all of your regularly prescribed medications as indicated. In addition you may want to start a medication called gemfibrozil, as your triglyceride level was high. Please ask your primary care provider about this. Your A1C (a measurement of how well controlled your diabetes is) was elevated during your hospital stay. Please inform your primary care provider of this, as you will need adjustment of your medication regimen in the future. Also your heart rate remained low during your hospital stay, this is most likely due to your Carvedilol medication. This dose may need to be adjusted in the future and I recommend close follow up for this. Please do strongly consider quitting tobacco. This is a substantial risk factor for you and your future heart health. Test Results Test Results . X-RAY CHEST ONE VIEW, PORTABLE IMPRESSION: No acute cardiopulmonary disease process. Dictated by: Hiral Cowan MD, PhD on 04/04/2017 Diet Discharge Diet: Heart Healthy Activity Discharge Activity: Limited until seen by PCP Call your provider Call your provider for: Fever or Chills, Shortness of breath, Bleeding, Chest pain, Vomitting, Excessive diarrhea, Weakness (unilateral) Patient Instructions Patient Instructions Please follow up with your primary care doctor within the next two weeks. We have scheduled you a follow up appointment with our Cardiologists at [facility] in the next 3 months. Like we talked about, if you develop additional cardiac symptoms like chest pain or shortness of breath please call 911 immediately for help, and take your Nitro. Follow-up Provider: Omero Davis MD Follow-up with PCP in: 2 weeks Provider: Marlee Liu MD Follow-up in: Other (3 months) Nieves Calvo DO 04/06/17 0730: Discharge Instructions Attending's Statement The patient was seen and examined together with Dr. Butterfield on 04/05/17 and I agree with the history, exam and plan as outlined in the note above. ROSALINDA BUTTERFIELD DO Apr 05, 2017 15:19 Nieves Calvo DO Apr 06, 2017 07:30
--- NOTE | 2017-04-05 16:06 | PCM.DC.MED ---
Discharge Summary Date of Service Apr 05, 2017 Dates of Hospitalization Date of Hospital Admission Apr 04, 2017 at 14:19 Date of Discharge: Apr 05, 2017 Providers: Admitting Physician: Nieves Calvo DO Primary Care Physician: Omero Davis MD Attending Physician: Nieves Calvo DO Diagnosis at Time of Discharge Diagnosis at Time of Discharge Unstable Angina Chronic Conditions Hypertension Type II diabetes Mellitus Gastroesophageal Reflux Disease Hyperlipidemia Consultations Cardiology, Dr. Liu was consulted Procedures XRay, CTs & MRIs PROCEDURE: X-RAY CHEST ONE VIEW, PORTABLE ([id number]) IMPRESSION: No acute cardiopulmonary disease process. Dictated by: Hiral Cowan MD, PhD on 04/04/2017 at 12:11 ECG 12 Lead ECG Interpretation: no STEMI T wave inversions in II, III and aVF, unchanged from previous no ST elevation Time: 12:43 Interpreted by: ED physician Brief History Mr. Street is a 51 year old male, with a past medical history significant for hypertension, type II diabetes mellitus, Atherosclerotic Coronary Artery Disease s/p right coronary artery and left circumflex coronary artery PCI X3 stents in September of this year who presented to the ED with substernal chest pain radiating to the right axilla. Patient states that the chest pain began at 1:30 am, after he woke up for work. Patient was given nitro 0.4mg 2x, morphine, ondansetron, acetaminophen, started on heparin drip and admitted for ACS rule out. Troponins were trended and remained negative 3. Patient underwent a treadmill stress test which was unremarkable. Patient will be discharged home in stable condition and we will not make any changes to his current home medication regimen. He must maintain close follow-up with his register of wills. It was noted that the patient's cholesterol was normal however his triglyceride level was elevated at 203. This information was given to the patient and told to follow- up with his primary care physician as they may want to start him on something for his elevated triglycerides. The patient also dips with tobacco and he was strongly encouraged to quit dipping as is his medical for his heart. The patient stated that he understood and he would make an effort to decrease/quit tobacco altogether. Hospital Course Mr. Street is a 51 year old male, with a past medical history significant for hypertension, type II diabetes mellitus, Atherosclerotic Coronary Artery Disease s/p right coronary artery and left circumflex coronary artery PCI X3 stents in September 2016 who presented to the ED with substernal chest pain radiating to the right axilla. Unstable Angina, acute, present on admission - In ED patient noted to have substernal chest pain radiating to right axilla. -Patient was hypertensive, initial troponin <.010. EKG revealed sinus rhythm, HR : 75, left axis deviation,T wave inversions in II, III and aVF, unchanged from previous and no ST elevation . -Patient was given nitro 0.4mg 2x, morphine, ondansetron, acetaminophen, started on heparin drip. improvement with nitroglycerin and morphine -Patient has a hx of KS and CAD s/p PCI X3 stents - RAMÍREZ score 4 - Patient received heparin drip per protocol for less than 24 hrs until his stress test - Continued ASA 81 mg QD - Continued Atorvastatin 80 mg QHS - Continued Clopidogrel 75 mg QD - Continued Csfvsseare69.5 MG PO DAILY - PRN nitroglycerin for CP - PRN morphine for CP - PRN EKG for chest pain - Trended Troponin Q6 which remained negative X3 - Cardiology, Dr. Liu was consulted -Exercise stress test was unremarkable -heart rate remained low during admission, likely due to Carvedilol. This dose may need to be adjusted in the future.Follow/up with cardiology Chronic conditions Hypertension, chronic, present on admission - Continue home medications, as above - Monitor for hypotension Type II diabetes Mellitus, chronic, present on admission - BG elevated on admit at 198 - Medium dose correctional scale ordered - Held home medications -Most Recent A1C 6.5 on September 2016 -Ordered A1c which was 7.7 -Reassess home medications for diabetes as Hgb A1C has increased Gastroesophageal Reflux Disease, chronic, present on admission - Continue pantoprazole 20 mg po bid Hyperlipidemia, chronic -Continue Atorvastatin -Lipid panel showed elevated triglyceride level at 203. Consider gemfibrozil to be started by PCP Tobacco use, chronic -Advised patient to strongly consider quitting tobacco use Code Status: Full code Exam Vital Signs (Last) Date Time Temp Pulse Resp B/P Pulse Ox O2 Delivery O2 Flow Rate FiO2 04/05/17 11:24 50 04/05/17 08:10 36.7 18 139/82 96 Room Air Exam General: Patient is lying comfortably on bed, AAOX3, not in acute distress, cooperative and pleasant. HEENT: head normocephalic and atraumatic, PERRLA, EOMI except no lateral gaze in R eye, no scleral icterus, noninjected conjunctiva Neck: neck supple, non-tender, no lymphadenopathy, trachea midline, no JVD CV: regular rate and rhythm, s1 and s2 heard, no murmur, radial pulses 2+ and equal bilaterally, no rubs murmurs or gallops, no edema Lungs: Clear to auscultation bilaterally, no wheezes, rales or rhonchi, no increased work of breathing Abdomen: normoactive bowel sounds on 4Q, soft, non-distended, non-tender to palpation, no organomegally, Skin: warm and dry Musculoskeletal: 5/5 UE and LE strength bilaterally, full ROM bilaterally Neuro: Grossly neurologically intact, cranial nerves II through XII intact, no dyskinesia, dysmetria, or dysdiadochokinesia noted, no pronator drift, negative Romberg test, sensation intact in extremities Psych: Normal mood and affect Test 04/04/17 12:44 04/04/17 16:39 04/05/17 03:45 04/05/17 08:41 Hemoglobin A1c 7.7% (4.8-5.6) Magnesium Level 2.0mg/dL (1.6-2.6) [place] Top Tube Received (Received) Urine Color Straw (YELLOW) Urine Appearance Clear (CLEAR,HAZY) Urine pH 5.5 (5.0-8.0) Urine Specific [place] 1.010 (1.003-1.035) Urine Protein Negativemg/dL (NEG,TRACE) Urine Glucose (UA) 100mg/dL (NEGATIVE) Urine Ketones Negativemg/dL (NEGATIVE) Urine Occult Blood Negative (NEGATIVE) Urine Nitrite Negative (NEGATIVE) Urine Bilirubin Negative (NEGATIVE) Urine Urobilinogen Normalmg/dL (NORMAL) Urine Leukocyte Esterase Negative (NEGATIVE) Urine RBC 0-2/hpf (0-2) Urine WBC 0-5/hpf (0-5) Urine Epithelial Cells None/hpf (NONE-MOD) Urine Crystals None seen (NONE SEEN) Urine Bacteria None/hpf (NONE-FEW) Urine Hyaline Casts None/lpf (NONE) Urine Granular Casts None seen (NONE SEEN) Urine Waxy Casts None seen (NONE SEEN) Urine Red Blood Cell Casts None seen (NONE SEEN) Urine White Blood Cell Casts None seen (NONE SEEN) Urine Mucus None seen (None Seen) Urine Trichomonas None seen (NONE SEEN) Urine Yeast None (NONE SEEN) Urinalysis Comment None Urine Culture Reflexed Not indicated White Blood Count 9.1th/mm3 (3.8-10.1) Red Blood Count 4.87mil/mm3 (4.40-5.80) Hemoglobin 14.1g/dL (13.8-17.2) Hematocrit 39.8% (41.0-50.0) Mean Corpuscular Volume 81.7fL (81-100) Mean Corpuscular Hemoglobin 29.0pg (27.0-35.0) Mean Corpuscular Hemoglobin Concent 35.4% (32.0-37.0) Red Cell Distribution Width 13.4% (12.3-15.4) Platelet Count 193bil/L (150-400) Neutrophils (%) (Auto) 45.5% (40-74) Lymphocytes (%) (Auto) 44.3% (14-46) Monocytes (%) (Auto) 8.5% (4-12) Eosinophils (%) (Auto) 1.2% (0-5) Basophils (%) (Auto) 0.2% (0-3) Sodium Level 140mEq/L (134-144) Potassium Level 4.1mEq/L (3.5-5.2) Chloride Level 102mEq/L (97-108) Carbon Dioxide Level 20mmol/L (18-29) Blood Urea Nitrogen 11mg/dL (6-24) Creatinine 1.03mg/dL (0.76-1.27) Estimat Glomerular Filtration Rate 81mL/min (>59) Glucose Level 139mg/dL (60-99) Calcium Level 9.2mg/dL (8.5-10.1) Total Bilirubin 0.8mg/dL (0.0-1.2) Aspartate Amino Transf (AST/SGOT) 23U/L (0-50) Alanine Aminotransferase (ALT/SGPT) 33U/L (0-44) Alkaline Phosphatase 82U/L (25-150) Total Protein 6.7g/dL (6.4-8.4) Albumin 3.9g/dL (3.4-5.0) Triglycerides Level 203mg/dL (0-149) Cholesterol Level 106mg/dL (100-199) LDL Cholesterol, Calculated 43.400mg/dL (0-99) VLDL Cholesterol 40.600mg/dL HDL Cholesterol 22mg/dL (>39) Cholesterol/HDL Ratio 4.82 (0.0-4.4) Troponin T 0.010ug/L (0.0-0.011) Test 04/05/17 10:29 Activated Partial Thromboplast Time 41.6sec (22.8-33.0) Discharge Medications Discharge Medications Aspirin (Aspirin) 81 Mg Tablet 81 MG PO QAM (Reported) Atorvastatin (Lipitor) 80 Mg Tablet 80 MG PO HS (Reported) Carvedilol (Carvedilol) 6.25 Mg Tablet 3.125 MG PO BID (Reported) Clopidogrel (Clopidogrel) 75 Mg Tablet 75 MG PO HS (Reported) Glimepiride (Glimepiride) 2 Mg Tablet 2 MG PO DAILYWM (Reported) Losartan Potassium (Losartan Potassium) 50 Mg Tablet 50 MG PO HS (Reported) Metformin ER (Metformin ER) 1,000 Mg Tablet 1,000 MG PO DAILYWD (Reported) Pantoprazole DR (Pantoprazole DR) 20 Mg Tablet.dr 20 MG PO BIDAC (Reported) As needed Acetaminophen (Acetaminophen) 325 Mg Tablet 650 MG PO Q4H PRN PRN For Pain ( Reported) Nitroglycerin SL (Nitroglycerin SL) 0.4 Mg Tab.subl 0.4 MG SL Q5MIN PRN PRN For Chest Pain (Reported) Additional med instructions Please continue to take all of your regularly prescribed medications as indicated. In addition you may want to start a medication called gemfibrozil, as your triglyceride level was high. Please ask your primary care provider about this. Your A1C (a measurement of how well controlled your diabetes is) was elevated during your hospital stay. Please inform your primary care provider of this, as you will need adjustment of your medication regimen in the future. Also your heart rate remained low during your hospital stay, this is most likely due to your Carvedilol medication. This dose may need to be adjusted in the future and I recommend close follow up for this. Please do strongly consider quitting tobacco. This is a substantial risk factor for you and your future heart health. Followup Plan Disposition: Patient will be discharged home in stable condition Follow-up plan Follow-up with cardiology and PCP Discharge Diet: Heart Healthy Discharge Activity: Limited until seen by PCP Patient Instructions Please follow up with your primary care doctor within the next two weeks. We have scheduled you a follow up appointment with our Cardiologists at [facility] in the next 3 months. Like we talked about, if you develop additional cardiac symptoms like chest pain or shortness of breath please call 911 immediately for help, and take your Nitro. Follow-up Provider: Omero Davis MD Follow-up with PCP in: 2 weeks Provider: Marlee Liu MD Follow-up in: Other (3 months) Time spent Greater than 35 minutes Attending Statement The patient was seen and examined together with Dr. Murry on 04/05/17 and I have added additional information to the note above. copies to: Marlee Liu MD; Omero Davis MD, Alexa N DO Apr 05, 2017 16:06 Nieves Calvo DO Apr 06, 2017 16:04
--- NOTE | 2017-04-05 16:57 | NUR ---
Discharge Pt discharged to home with transportation by his [id number]. Pt's IV dc'd intact. Telemetry was removed and tech notified. Pt's discharge instructions and follow up appointments were reviewed. All pt's questions were answered and pt voiced understanding. All belongings were gathered for transportation home with pt. Pt was escorted to hospital lobby by RN.
== END 2017-04-05 16:58 | disposition home or self-care (01) ==
LOC: SED 12:30 → INTOOBSV 14:19 → PCC 14:19
PROVIDERS: ADMIT Neuromusculoskeletal Medicine & OMM; ATTEND Neuromusculoskeletal Medicine & OMM
DX: I20.0 Unstable angina (principal); I10 Essential (primary) hypertension; E11.9 Type 2 diabetes mellitus without complications; I25.10 Atherosclerotic heart disease of native coronary artery without angina pectoris; K21.9 Gastro-esophageal reflux disease without esophagitis; E78.5 Hyperlipidemia, unspecified; I25.2 Old myocardial infarction; M19.90 Unspecified osteoarthritis, unspecified site; F17.210 Nicotine dependence, cigarettes, uncomplicated; Z95.5 Presence of coronary angioplasty implant and graft; Z79.82 Long term (current) use of aspirin; Z79.02 Long term (current) use of antithrombotics/antiplatelets; Z88.8 Allergy status to other drugs, medicaments and biological substances; Z79.84 Long term (current) use of oral hypoglycemic drugs
CPT/HCPCS: 36415; 71010; 80053; 80061; 81000; 83036; 83735; 84484; 85025; 85730; 93005; 93017; 96374; 96376; 99291; 99292; G0378; J1644; J1815